=== PATIENT | female | born 1965 | race Caucasian/White ===

== ENCOUNTER 2018-07-05 11:54 | Outpatient (CLI) | payer MEDICAID, SELFPAY ==
[2018-07-05 12:54] LABS: Bilirubin Negative (Negative); Blood Negative (Negative); Clarity Clear; Glucose Negative (Negative); Ketones Negative (Negative); Leukocyte Esterase Negative (Negative); Nitrite Negative (Negative); Specific Gravity 1.025 (1.005-1.025); Urobilinogen 0.2 EU/dL (Up TO 0.2)
[2018-07-05 12:57] LABS: Abs Immature Grans 0.01 k/cumm (0.0-0.09); Absolute Basophil Count 0.04 k/cumm (0.0-0.2); Absolute Eosinophil Count 0.14 k/cumm (0.0-0.7); Absolute Lymphocyte Count 1.87 k/cumm (1.2-3.4); Absolute Monocyte Count 0.42 k/cumm (0.11-0.7); Absolute Neutrophil Count 3.76 k/cumm (1.2-6.7); Basophils % 0.6; Eosinophils % 2.2; HCT 42.5 % (36.0-46.0); HGB 14.2 g/dL (12.0-15.5); Immature Grans % 0.2; Mean Corp. HGB Concentration 33.4 g/dL (32.0-36.0); Mean Corpuscular Hemoglobin 31.9 pg (27.0-33.0); Mean Corpuscular Volume 95.5 fL (80-95); Mean Platelet Volume 12.1 fL (8.0-11.0); Monocytes % 6.7; Neutrophils % 60.3; Platelet Count 160 x1000/uL (130-400); RBC 4.45 m/cumm (4.00-5.20); White Blood Cell Count 6.24 k/cumm (4.4-10.8)
[2018-07-05 14:49] LABS: ALT 23 U/L (12-78); AST 15 U/L (15-37); Albumin 4.3 g/dL (3.4-5.0); Alkaline Phosphatase 68 U/L (46-116); BUN 13 mg/dL (7-18); Bilirubin, Total 0.4 mg/dL (0.2-1.0); CREATININE 0.68 mg/dL (0.55-1.02); Calcium 8.9 mg/dL (8.5-10.1); Chloride 104 mmol/L (98-107); Glucose 81 mg/dL (70-100); Magnesium 1.9 mg/dL (1.8-2.4); Potassium 4.3 mmol/L (3.5-5.1); Sodium 141 mmol/L (136-145); TSH (W/Ref FT4) 0.66 uIU/mL (0.358-3.74); Total Protein 7.2 g/dL (6.4-8.2); Vitamin B12 349 pg/mL (193-986)
[2018-07-07 06:44] LABS: Vitamin D 25 Total 37.1 ng/ml (30-100)
== END 2018-07-05 12:14 ==
PROVIDERS: PCP Family Medicine; Visit Provider Family Medicine
DX: R10.10 Upper abdominal pain, unspecified (principal); R53.83 Other fatigue; E55.9 Vitamin D deficiency, unspecified; E53.8 Deficiency of other specified B group vitamins
CPT/HCPCS: 36415; 80053; 82306; 81003; 82607; 83735; 84443; 85025

== ENCOUNTER 2018-08-02 00:09 | Outpatient (CLI) | payer MEDICAID, SELFPAY ==
--- NOTE | 2018-08-02 09:49 | DI.US_ITS ---
SYMPTOMS/DIAGNOSIS: QUESTIONING GALLSTONES, ABDOMINAL PAIN, R10.9, K8.20 ABDOMINAL ULTRASOUND: Routine examination was performed. Comparison is 10/27/12. The aorta and IVC are unremarkable. There are two small simple cysts seen in the right lobe of the liver, the larger measuring 1.4 cm, the smaller measuring 1.1 cm. No suspicious hepatic masses are seen. The gallbladder is negative sonographically. No stones, sludge, gallbladder wall thickening or pericholecystic fluid is seen. The common duct is within normal limits at 0.3 cm. The pancreas, kidneys and spleen are unremarkable. IMPRESSION: Two small simple hepatic cysts. Otherwise negative examination.
== END 2018-08-02 00:29 ==
PROVIDERS: PCP Family Medicine; Visit Provider Family Medicine
DX: R10.9 Unspecified abdominal pain (principal); K76.89 Other specified diseases of liver; K80.20 Calculus of gallbladder without cholecystitis without obstruction
CPT/HCPCS: 76700

== ENCOUNTER 2018-08-22 11:23 | Outpatient (CLI) | payer MEDICAID, SELFPAY ==
--- NOTE | 2018-08-22 14:34 | DI.RAD_ITS ---
SYMPTOMS/DIAGNOSIS: FATIGUE, SMOKER, R53.83, F17.200 PA AND LATERAL CHEST: The heart is not enlarged. The lungs are grossly clear. Mild scarring noted in the lung bases. No gross interval change in appearance in comparison with examination of 07/28/15. No pleural effusion seen. CONCLUSION: No evidence of acute disease.
== END 2018-08-22 11:43 ==
PROVIDERS: PCP Family Medicine; Visit Provider Family Medicine
DX: R53.83 Other fatigue (principal); F17.200 Nicotine dependence, unspecified, uncomplicated
CPT/HCPCS: 71046

== ENCOUNTER 2018-09-19 19:01 | Outpatient (REF) | payer MEDICAID, SELFPAY | END 2018-09-19 19:21 | LOC: LBN 19:01 | PROVIDERS: PCP Family Medicine; Visit Provider Family Medicine | DX: J02.9 Acute pharyngitis, unspecified (principal) | CPT/HCPCS: 87077; 87070 ==

== ENCOUNTER 2019-03-06 14:07 | Outpatient (CLI) | payer MEDICAID, SELFPAY ==
[2019-03-06 15:03] LABS: Absolute Basophil Count 0.05 k/cumm (0.0-0.2); Absolute Eosinophil Count 0.13 k/cumm (0.0-0.7); Absolute Lymphocyte Count 1.87 k/cumm (1.2-3.4); Absolute Monocyte Count 0.47 k/cumm (0.11-0.7); Absolute Neutrophil Count 3.44 k/cumm (1.2-6.7); Basophils % 0.8; Eosinophils % 2.2; HCT 43.2 % (36.0-46.0); HGB 14.4 g/dL (12.0-15.5); Lymphocytes % 31.4; Mean Corp. HGB Concentration 33.3 g/dL (32.0-36.0); Mean Corpuscular Hemoglobin 31.6 pg (27.0-33.0); Mean Corpuscular Volume 94.7 fL (80-95); Mean Platelet Volume 11.6 fL (8.0-11.0); Monocytes % 7.9; Neutrophils % 57.7; Platelet Count 172 x1000/uL (130-400); RBC 4.56 m/cumm (4.00-5.20); RBC Distribution Width 13.7 % (11.7-14.6); White Blood Cell Count 5.96 k/cumm (4.4-10.8)
[2019-03-06 15:50] LABS: ALT 22 U/L (12-78); AST 15 U/L (15-37); Albumin 4.2 g/dL (3.4-5.0); Alkaline Phosphatase 72 U/L (46-116); Anion Gap 9.5 mmol/L (3-11); BUN 13 mg/dL (7-18); Bilirubin, Total 0.5 mg/dL (0.2-1.0); CO2 27.5 mmol/L (21.0-32.0); CREATININE 0.53 mg/dL (0.55-1.02); Calcium 9.4 mg/dL (8.5-10.1); Chloride 103 mmol/L (98-107); Glucose 90 mg/dL (70-100); Sodium 140 mmol/L (136-145)
== END 2019-03-06 14:27 ==
PROVIDERS: PCP Family Medicine; Visit Provider Family Medicine
DX: R53.83 Other fatigue (principal)
CPT/HCPCS: 36415; 80053; 83735; 85025

== ENCOUNTER 2019-08-25 01:23 | Outpatient (CLI) | payer MEDICAID, SELFPAY ==
--- NOTE | 2019-08-25 13:06 | DI.US_ITS ---
EXAM: US PELVIS AND TRANSVAGINAL CLINICAL HISTORY: PELVIC PAIN/COCCYDYNIA W/O INJURY, R10.2 TECHNIQUE: Ultrasound performed using standard protocol. COMPARISON: US ABDOMEN from 08/02/2018 FINDINGS: The uterus is retroverted. Uterus measures 7.9 centimeters long x 7.1 centimeters AP x 5.8 centimete rs transverse. There are several hypoechoic masses in the uterus. These likely reflect fibroids. T he largest is seen in the fundal region and measures 5.1 x 5.2 x 5.1 centimeters. The endometrial stripe is thickened in this postmenopausal patient. It measures 9 millimeters in thi ckness. There does appear to be a 0.8 x 0.5 x 0.7 centimeter hypoechoic vascular region in the moshe l endometrium. The patient is status post right oophorectomy. The left ovary measures 2.3 x 1.4 x 1.4 centimeters. The left ovary is unremarkable. No free pelvic fluid or hydronephrosis is present. IMPRESSION: 1. Fibroid uterus. 2. Thickened postmenopausal endometrial stripe. Question of a 0.8 centimeter hypoechoic mass in the endometrium. Gynecologic consult is recommended. 3. Right oophorectomy.
--- NOTE | 2019-08-25 14:00 | DI.US_ITS ---
APPROVED REPORT EXAM: Comprehensive 2D, Doppler, and color-flow Echocardiogram Patient Location: Out-Patient Tobacco Sample Puller: Mildred Camp [facility] ([place]) Indications: Tricuspid insufficiency Conclusion Left Ventricle : The left ventricle is normal size. There is normal left ventricular wall thickness. The left ventricular ejection fraction is within the normal range. There is normal LV segmental wa ll motion. Diastolic function is indeterminate. LVEF is 50-55%. Right Ventricle : The right ventricle is normal size. The right ventricular systolic function is norm al. Atria : The left atrium size is mildly enlarged. Right atrium is mildly dilated. Aortic Valve : Aortic valve is trileaflet. No aortic regurgitation is present. There is no aortic nicholas vular stenosis. Mitral Valve : The mitral valve is normal in structure. There is mitral annular calcification. The mi tral valve chordae are thickened and/or calcified. There is systolic anterior motion of the mitral va lve. Mild mitral regurgitation. No evidence of mitral valve stenosis. Tricuspid Valve : The tricuspid valve is normal in structure. Mild tricuspid regurgitation. Great Vessels : The IVC is enlarged but collapses greater than 50%. Estimated RVSP is 24-32 mmHg. The echocardiographic images from 2011 are unavailable for comparison. Wall motion Left Ventricle The left ventricle is normal size. The left ventricular ejection fraction is within the normal range. There is normal left ventricular wall thickness. There is normal LV segmental wall motion. Diastolic function is indeterminate. LVEF is 50-55%. Right Ventricle The right ventricle is normal size. The right ventricular systolic function is normal. Atria The left atrium size is mildly enlarged. Right atrium is mildly dilated. Aortic Valve Aortic valve is trileaflet. There is no aortic valvular stenosis. No aortic regurgitation is present. Mitral Valve The mitral valve is normal in structure. There is mitral annular calcification. The mitral valve chor gianluca are thickened and/or calcified. There is systolic anterior motion of the mitral valve. No evidenc e of mitral valve stenosis. Mild mitral regurgitation. Tricuspid Valve The tricuspid valve is normal in structure. There is no tricuspid valve stenosis. Mild tricuspid regu rgitation. Pulmonic Valve The pulmonary valve is normal in structure. There is no pulmonic valvular stenosis. Great Vessels The aortic root size is normal. Ascending aorta is not well visualized. The IVC is enlarged but colla pses greater than 50%. Estimated RVSP is 24-32 mmHg. Pericardium There is no pericardial effusion. 2D Dimensions IVSd 0.85 cm F: 0.6-1.0 LV EDV A2C 89.44 mL PWd 0.85 cm F: 0.6 - 1.0 LV EDV A4C 98.07 mL LVDd 4.65 cm F: 3.8 - 5.2 LA Volume Index A2C 51.08 mL/m2 LVDs 3.50 cm F: 2.2 - 3.5 LA Volume Index A4C 33.38 mL/m2 Aortic Root 3.15 cm F: 2.7 - 3.3 LA Volume Index Biplane 41.93 mL/m2 Left Atrium 3.29 cm F: 2.7 - 3.8 LA Area A4C 18.17 cm2 RA Area A4C 14.79 cm2 LA Area A2C 22.13 cm2 LVOT 1.85 cm (M/F) 1.5-2.5 LA/Aortic Root Ratio 0.96 LVEF (Teich) 49.87 % EF AP4 53.27 % LVEF (Landry's) 52.92 % F: 54 - 74 EF AP2 56.57 % LV Volume 78.13 mL F: 46 - 106 EF BP 52.92 % LV Volume Index 49.13 mL/m2 F: 29 - 61 FS 25.25 % LV Diastology E Decel Time 191.00 (160-240 msec) E/A Ratio 0.8 MED E' 0.06 (>0.07 m/s) LV E/e MED 8.10 (<14) LAT E' 0.08 (>0.1 m/s) LV E/e LAT 6.65 (<14) Aortic Valve LVOT Area 2.74 cm2 LVOT Peak [place]. 0.90 m/s LVOT Mean [place]. 0.56 m/s LVOT Peak Gr. 3.40 mmHg MISTY Vmax Index 1.17 cm2/m2 LVOT Mean Gr. 1.50 mmHg LVOT VTI 0.20 m MISTY Mean [place]. Index 0.97 cm2/m2 AoV Peak [place]. 1.36 (0.5-1.3 m/s) AoV Mean [place]. 0.99 m/s AO Peak GR. 7.39 mmHg AO Mean GR. 4.22 (<5 mmHg) AO VTI 0.28 (0.18-0.25 m) MISTY (VTI) 2.04 (2.5-4.5 cm2) MISTY (VTI) Index 1.28 cm/m2 Mitral Valve MV E Max [place]. 0.52 (0.4-1.3 m/s) MVA VTI 2.64 (4.0-6.0 cm2) MV A Velocity 0.65 (0.4-1.3 m/s) E/A Ratio 0.79 MV Decel. Time 190.60 (160-240 msec) MV PHT 55.28 msec MVA PHT 3.95 cm2 Pulmonary Valve PV Peak Velocity 0.83 (0.5-1.5 m/s) Tricuspid Valve TR P. Velocity 2.46 m/s TV Regurg Vmax 2.46 m/s RAP Estimate 3.00 mmHg RVSP 27.30 mmHg TR P. Gradient 24.25 mmHg
== END 2019-08-25 01:43 ==
PROVIDERS: PCP Family Medicine; Visit Provider Family Medicine
DX: I07.1 Rheumatic tricuspid insufficiency (principal); I51.7 Cardiomegaly; R10.2 Pelvic and perineal pain; D25.9 Leiomyoma of uterus, unspecified; Z90.721 Acquired absence of ovaries, unilateral; Z78.0 Asymptomatic menopausal state; R93.89 Abnormal findings on diagnostic imaging of other specified body structures
CPT/HCPCS: 76830; 76856; 93306

== ENCOUNTER 2019-09-05 10:28 | Outpatient (CLI) | payer MEDICAID, SELFPAY ==
--- NOTE | 2019-09-05 10:31 | DI.RAD_ITS ---
EXAM: XR SHOULDER RT COMPLETE 2+V INDICATION: shoulder pain. COMPARISON: No exams were available for comparison TECHNIQUE: 2D digital imaging was performed. FINDINGS: Moderate degenerative changes are seen at the acromioclavicular joint. Mild degenerative changes are seen at the glenohumeral joint. The bones are intact. There is a tiny calcification adjacent to th e greater tuberosity most consistent with calcific tendonitis. The soft tissues are otherwise unrema rkable. IMPRESSION: Osteoarthritis of the right shoulder.
== END 2019-09-05 10:48 ==
PROVIDERS: PCP Family Medicine; Visit Provider Physician Assistant
DX: M25.511 Pain in right shoulder (principal); M19.011 Primary osteoarthritis, right shoulder; M75.31 Calcific tendinitis of right shoulder
CPT/HCPCS: 73030

== ENCOUNTER 2019-10-16 09:15 | Outpatient (CLI) | payer MEDICAID, SELFPAY ==
[2019-10-16 12:39] LABS: Absolute Basophil Count 0.06 k/cumm (0.0-0.2); Absolute Eosinophil Count 0.19 k/cumm (0.0-0.7); Absolute Monocyte Count 0.59 k/cumm (0.11-0.7); Absolute Neutrophil Count 4.54 k/cumm (1.2-6.7); Basophils % 0.8; Eosinophils % 2.6; HCT 41.6 % (36.0-46.0); HGB 13.6 g/dL (12.0-15.5); Lymphocytes % 27.1; Mean Corp. HGB Concentration 32.7 g/dL (32.0-36.0); Mean Corpuscular Hemoglobin 30.9 pg (27.0-33.0); Mean Corpuscular Volume 94.5 fL (80-95); Neutrophils % 61.5; Platelet Count 192 x1000/uL (130-400); White Blood Cell Count 7.38 k/cumm (4.4-10.8)
[2019-10-16 12:55] LABS: ALT 22 U/L (14-59); AST 16 U/L (15-37); Albumin 4.4 g/dL (3.4-5.0); Alkaline Phosphatase 72 U/L (46-116); BUN 19 mg/dL (7-18); Bilirubin, Total 0.6 mg/dL (0.2-1.0); CREATININE 0.56 mg/dL (0.55-1.02); Calcium 9.4 mg/dL (8.5-10.1); Chloride 104 mmol/L (98-107); Glucose 91 mg/dL (74-106); Potassium 3.9 mmol/L (3.5-5.1); Sodium 143 mmol/L (136-145); TSH (W/Ref FT4) 0.82 uIU/mL (0.36-3.74); Total Protein 7.3 g/dL (6.4-8.2)
== END 2019-10-16 09:35 ==
PROVIDERS: PCP Family Medicine; Visit Provider Family Medicine
DX: R53.83 Other fatigue (principal)
CPT/HCPCS: 36415; 80053; 84443; 85025

== ENCOUNTER 2019-11-20 08:44 | Outpatient (CLI) | payer MEDICAID, SELFPAY | END 2019-11-20 09:04 | PROVIDERS: PCP Family Medicine; Visit Provider Internal Medicine Cardiovascular Disease | DX: R00.2 Palpitations (principal); I08.1 Rheumatic disorders of both mitral and tricuspid valves | CPT/HCPCS: 93005; 93010 ==

== ENCOUNTER 2020-07-18 01:36 | Outpatient (CLI) | payer MEDICAID, SELFPAY | END 2020-07-18 01:56 | PROVIDERS: PCP Family Medicine; Visit Provider Family Medicine | DX: R69 Illness, unspecified (principal) ==

== ENCOUNTER 2020-07-29 00:41 | Outpatient (CLI) | payer MEDICAID, SELFPAY ==
--- NOTE | 2020-07-29 | DI.US_ITS ---
EXAM: US ABDOMEN INDICATION: RUQ ABD PAIN,R10.11 COMPARISON: US ABDOMEN ULTRASOUND (P) from 10/27/2012 US US ABDOMEN from 08/02/2018 US US ECHOCARDIOGRAM from 08/25/2019 TECHNIQUE: Ultrasound abdomen performed using standard protocol FINDINGS: Abdominal ultrasound was performed according to the usual protocol. The liver is normal in size and shape. No focal hepatic lesion seen. There is no evidence of cholelithiasis or biliary dilatation. No gallbladder wall thickening or peric holecystic fluid collection. Pancreas appears intact as visualized. Spleen is unremarkable in appearance with no focal lesion. The right kidney is unremarkable in appearance with no evidence of hydronephrosis nephrolithiasis or renal mass. Left kidney shows question of masslike findings of the lower pole, this may be associate d with duplication of the collecting system with variant appearance of the cortex but mass is not exc luded. Additional evaluation with renal CT or MRI recommended. Abdominal aorta and IVC are of normal diameter. IMPRESSION: No evidence of cholelithiasis. Question left renal lower pole mass. Additional evaluation with sofia l CT or MRI recommended.
== END 2020-07-29 01:01 ==
PROVIDERS: PCP Family Medicine; Visit Provider Family Medicine
DX: R10.11 Right upper quadrant pain (principal)
CPT/HCPCS: 76700

== ENCOUNTER 2020-08-15 01:01 | Outpatient (CLI) | payer MEDICAID, SELFPAY ==
--- NOTE | 2020-08-15 07:00 | DI.CT_ITS ---
EXAM: CT ABD WO/ABD PEL W CLINICAL HISTORY: question of left lower pole renal mass on U/S,ABD/PELVIC PAIN,N28.89 TECHNIQUE: Imaging Protocol: Axial computed tomography images with coronal and sagittal reformatted images were created and reviewed CONTRAST MATERIAL: Intravenous: Omnipaque 350 Contrast volume:100 mL Oral: No COMPARISON: US US ABDOMEN from 07/29/2020 FINDINGS: ABDOMEN: Lung Bases: There is atelectasis in the lung bases bilaterally. There is a 0.5 cm noncalcified pulmo nary nodule in the left lower lobe. Liver: Normal density. There is a 1.7 cm cyst in the posterior aspect of the right lobe of the liver. No suspicious hepatic masses. Portal, Superior Mesenteric, and Splenic Veins: Unremarkable. Gallbladder and Biliary Tract: No radiodense calculus or dilation. Pancreas: Normal density, no abnormal calcifications or inflammatory process. Spleen: Normal. Adrenals: No masses seen. Kidneys: Normal size, contour and axis. 3 mm nonobstructing stone in the lower pole of the right kidn ey. 2 mm nonobstructing stone in the upper pole of the left kidney. No evidence of a renal mass. T he areas seen in the left kidney represents normal enhancing parenchymal tissue. Abdominal Aorta: Abdominal portion non-dilated. Mild atherosclerosis. Bowel: No obstruction or bowel wall thickening. Appendix is unremarkable. Peritoneal Cavity: No ascites, collection or mesenteric inflammatory response. Lymph Nodes: Within normal limits. Bones: Degenerative changes. Soft Tissues: Unremarkable. PELVIS: Bladder: Symmetric distention, no gross wall thickening. Reproductive Organs: Unremarkable as visualized. Lymph Nodes: Within normal limits. Bones: Degenerative changes. IMPRESSION: 1. No evidence of a left renal mass. The area of concern on the ultrasound corresponds to normally e nhancing renal tissue. 2. Bilateral nephrolithiasis. 3. 0.5 cm left lower lobe pulmonary nodule. In the presence of risk factors (example smoking), a fol low-up CT scan of the chest in 12 months is recommended for re-evaluation. RADIATION DOSE DELIVERED: 1,038.42mGy.cm Total DLP 1,038.42mGy.cm Total DLP DATA REPOSITORY: All CT scans at this facility are submitted to the National Radiology Data Registry (NRDR) Dose Index Registry (DIR) with the [employer] (ACR). RADIATION OPTIMIZATION: All CT scans at this facility use at least one of these dose optimization te chniques: automated exposure control; mA and/or kV adjustment per patient size (includes targeted exa ms where dose is matched to clinical indication); or iterative reconstruction.
[2020-08-15] MEDS: Normal Saline Flush 10 ML SYR IVP (11:03)
[2020-08-15] MEDS: Omnipaque 350 MG/ML 100 ML BTL IJ (11:04)
[2020-08-15] MEDS: Normal Saline - Diluent 50 ML VIAL IV (11:05)
== END 2020-08-15 01:21 ==
PROVIDERS: PCP Family Medicine; Visit Provider Family Medicine
DX: N20.0 Calculus of kidney (principal); R91.1 Solitary pulmonary nodule; R10.2 Pelvic and perineal pain
CPT/HCPCS: 74178; 82565; J3490

== ENCOUNTER 2020-10-24 05:08 | Outpatient (CLI) | payer MEDICAID, SELFPAY ==
--- NOTE | 2020-11-11 08:47 | ZIOP_ITS ---
Date of service: 11/11/20 Time of Service: 08:47 14 Day Wind Plant Manager Referring Provider:: [email or web address] Indications:: palps Note: This is a 14-day monitor ordered for the indication of palpitations. ?The patient was in normal sinus rhythm for the majority of the recording with an average heart rate of 80 bpm. ?There were rare PVCs and rare PACs. ?There was one episode of NSVT which lasted 4 beats. There were 2 episodes of supraventricular tachycardia with the longest lasting 3 beats. ?There were no episodes of atrial fibrillation, no pauses greater than 3 seconds and no evidence of high degree heart block. ?There were 26 patient triggered events which were associated with sinus rhythm and a occasional PVC.
== END 2020-10-24 05:28 ==
PROVIDERS: PCP Family Medicine; Visit Provider Nurse Practitioner Family

== ENCOUNTER 2020-11-08 11:00 | Outpatient (CLI) | payer MEDICAID, SELFPAY ==
[2020-11-08 14:17] LABS: Vitamin D 25 Total 35.5 ng/ml (30-100)
[2020-11-08 14:25] LABS: Calculated LDL 128 mg/dL (<100); Cholesterol 207 mg/dL (<200); HDL Cholesterol 52 mg/dL (40-60); TSH (W/Ref FT4) 0.71 uIU/mL (0.36-3.74); Triglyceride 135 mg/dL (<150); Vitamin B12 346 pg/mL (193-986)
== END 2020-11-08 11:01 | disposition home or self-care (01) ==
LOC: LOS 11:00
PROVIDERS: Nurse Practitioner Family; PCP Family Medicine; Visit Provider Family Medicine
DX: E55.9 Vitamin D deficiency, unspecified (principal); E53.8 Deficiency of other specified B group vitamins; Z13.29 Encounter for screening for other suspected endocrine disorder; Z13.220 Encounter for screening for lipoid disorders
CPT/HCPCS: 36415; 80061; 82306; 82607; 84443

== ENCOUNTER 2020-12-06 13:51 | Outpatient (REF) | payer MEDICAID, SELFPAY | END 2020-12-06 13:52 | disposition home or self-care (01) | LOC: LBN 13:51 | PROVIDERS: PCP Family Medicine; Visit Provider Obstetrics & Gynecology | DX: N89.8 Other specified noninflammatory disorders of vagina (principal) | CPT/HCPCS: 87480; 87510; 87660 ==

== ENCOUNTER 2021-01-21 16:56 | Outpatient (REF) | payer MEDICAID, SELFPAY ==
[2021-01-21 17:09] LABS: Creatinine,Urine 53.38 mg/dL; Sodium, Urine 52 mmol/L
[2021-01-21 17:10] LABS: CLEAVED CELLS 146 mmol/24h (40-220); Creatinine,24hr Ur 1.49 g/24hr (0.60-1.80); Total Volume 2800 ml
[2021-01-22 09:01] LABS: Calcium Urine 9.7 mg/dL (See Note); Calcium Urine 24 hr 272 mg/24hrs (100-300); Timed Urine Volume 2800 mL
[2021-01-22 09:02] LABS: Timed Urine Volume 2800 mL; Uric Acid Urine 28.1 mg/dL (See Note); Uric Acid Urine 24hr 787 mg/24hrs (250-750)
[2021-01-22 09:03] LABS: Magnesium 24hr Urine 89.6 mg/24hrs (12.0-192.0); Magnesium Random Urine 3.2 mg/dL (See Note); Timed Urine Volume 2800 mL
[2021-01-22 19:23] LABS: Citrate Excretion, 24hr, U 512 mg/24 h (392 - 1191); Urine Volume 2800 mL
[2021-01-23 15:37] LABS: Oxalate, U 0.31 mmol/24 h; Oxalate, U 27.3 mg/24 h (9.7 - 40.5); Urine Volume 2800 mL
== END 2021-01-21 16:57 | disposition home or self-care (01) ==
LOC: NCHCN 16:56
PROVIDERS: PCP Family Medicine; Visit Provider Urology
DX: N20.0 Calculus of kidney (principal)
CPT/HCPCS: 82507; 83735; 81050; 82340; 82570; 83945; 84300; 84560

== ENCOUNTER 2021-01-30 02:12 | Outpatient (CLI) | payer MEDICAID, SELFPAY ==
[2021-01-30 17:57] LABS: Uric Acid 3.5 mg/dL (2.6-6.0)
[2021-01-30 18:09] LABS: Albumin 4.6 g/dL (3.4-5.0); CREATININE 0.7 mg/dL (0.55-1.02); Calcium 9.5 mg/dL (8.5-10.1); TSH 0.95 uIU/mL (0.36-3.74)
[2021-01-31 16:36] LABS: Rheumatoid Factor <8.6 IU/mL (<12.0)
[2021-02-02 22:08] LABS: Anaplasma phagocytophilum Negative (Negative); B. miyamotoi PCR Negative (Negative); Babesia divergens/MO-1 Negative (Negative); Babesia duncani Negative (Negative); Babesia microti Negative (Negative); Ehrlichia chaffeensis Negative (Negative); Ehrlichia ewingii/canis Negative (Negative); Ehrlichia muris eauclairensis Negative (Negative)
[2021-02-03 10:53] LABS: Lyme Ab w Rflx to Lyme Confirm Negative (Negative)
== END 2021-01-30 02:13 | disposition home or self-care (01) ==
LOC: LBO 02:12
PROVIDERS: Internal Medicine; PCP Family Medicine; Visit Provider Nurse Practitioner Family
DX: N20.1 Calculus of ureter (principal); R53.83 Other fatigue; M25.59 Pain in other specified joint
CPT/HCPCS: 36415; 87798; 82040; 82310; 82565; 84443; 84550; 86140; 86431; 86618

== ENCOUNTER 2021-03-05 01:35 | Outpatient (CLI) | payer MEDICAID, SELFPAY ==
--- NOTE | 2021-03-05 | DI.CT_ITS ---
Exam(s) CT CHEST WO EXAM: CT CHEST WO CLINICAL HISTORY: COPD, J44.9 TECHNIQUE: Imaging Protocol: Axial computed tomography images with coronal and sagittal reformatted images were created and reviewed CONTRAST MATERIAL: No IV contrast was administered. COMPARISON: CT CT ABD WO/ABD PEL W from 08/15/2020 FINDINGS: Tracheobronchial tree: Patent where visualized. Mediastinum and Vivian: No dominant adenopathy or fluid collection. Pulmonary parenchyma: No consolidation or dominant measurable mass. Mild centrilobular and paraseptal emphysema is noted. There is a 0.4 cm mildly thick-walled cystic lesion in the right middle lobe. There is a stable 4 mm noncalcified pulmonary nodule in the left lower lobe. There is stable scarrin g in the lower lobes bilaterally. Pleura: No effusion or pneumothorax. Heart: The heart is not dilated. No coronary artery calcifications are seen. No pericardial effusion. Aorta: Thoracic aorta non-dilated. Mild atherosclerosis. Upper abdomen: Stable hypodense fluid attenuation lesion in the posterior right lobe of the liver. Nonobstructing 3 mm stone in the superior pole of the left kidney. Lymph nodes: Within normal limits. Bones: Degenerative changes. Soft tissues: Unremarkable. Thyroid gland: Unremarkable. IMPRESSION: 1. Mild centrilobular and paraseptal emphysema. 2. Stable 4 mm left lower lobe pulmonary nodule. 3. 4 mm right middle lobe cyst with a mildly thickened wall. This is nonspecific. Mild infectious o r inflammatory process or pneumatocele should be considered. Neoplasm/metastatic disease cannot be e ntirely excluded but is considered less likely. A follow-up CT scan may be obtained for re-evaluat ion in 3-6 months. RADIATION DOSE DELIVERED: 410.66mGy.cm Total DLP DATA REPOSITORY: All CT scans at this facility are submitted to the National Radiology Data Registry (NRDR) Dose Index Registry (DIR) with the [employer] (ACR). RADIATION OPTIMIZATION: All CT scans at this facility use at least one of these dose optimization te chniques: automated exposure control; mA and/or kV adjustment per patient size (includes targeted exa ms where dose is matched to clinical indication); or iterative reconstruction.
== END 2021-03-05 01:55 ==
PROVIDERS: PCP Nurse Practitioner Family; Visit Provider Internal Medicine
DX: J44.9 Chronic obstructive pulmonary disease, unspecified (principal); J43.2 Centrilobular emphysema; R91.1 Solitary pulmonary nodule; J98.4 Other disorders of lung
CPT/HCPCS: 71250

== ENCOUNTER 2021-04-01 01:23 | Outpatient (CLI) | payer MEDICAID, SELFPAY ==
--- NOTE | 2021-04-01 08:00 | DI.US_ITS ---
Exam(s) US RENAL EXAM: US RENAL CLINICAL HISTORY: monitor known kidney stones, N20.0, star nephrolithiasis TECHNIQUE: Ultrasound performed using standard protocol. COMPARISON: US US ABDOMEN from 07/29/[address] CHEST WO from 03/05/[address] CHEST WO from 03/05/2021 FINDINGS: Renal ultrasound was performed according to the usual protocol. There is no evidence of hydronephros is. There is a probable tiny lower pole right renal calculus. No left renal calculus identified. T here is no evidence a renal mass. Urinary bladder is unremarkable in appearance with pre and postvoid urinary bladder volume measuremen ts 147 cc and 10 cc respectively. IMPRESSION: A possible tiny nonobstructing right renal calculus. No other significant findings. DATA REPOSITORY:
== END 2021-04-01 01:43 ==
PROVIDERS: PCP Nurse Practitioner Family; Visit Provider Urology
DX: N20.0 Calculus of kidney (principal)
CPT/HCPCS: 76770

== ENCOUNTER 2021-06-11 01:40 | Outpatient (CLI) | payer MEDICAID, SELFPAY ==
--- NOTE | 2021-06-11 | DI.DEXA_ITS ---
Exam(s) XR DEXA BONE DENSITY W/WO RADHA EXAM: XR DEXA BONE DENSITY W/WO RADHA CLINICAL HISTORY: JOINT PAIN, M25.50, FAMILY H/O OSTEOPOROSIS,SCREENING FOR OSTEOPOROSIS TECHNIQUE: Routine DEXA evaluation of the lumbar spine, hip, or forearm. COMPARISON: CR LUMBAR SPINE COMPLETE from 01/23/2014 FINDINGS: Performed on a Hologic unit. Lateral image: No compression fracture evident. Lumbar Spine total T-score: -0.9 Hip total T-score:-0.7 Independent reading at the femoral neck yields a T-score of -1.8 Forearm total T-score: -0.6 IMPRESSION: Bone mineral density measures in the osteopenia range. Fracture risk is moderate. Note: Any spine fracture indicates 5x risk for subsequent spine fracture and 2x risk for subsequent h ip fracture. World Health Organization criteria for BMD interpretation classify patients: Normal...... T- Score at or above -1.0 Osteopenic... T- Score between -1.0 and -2.5 Osteoporosis... T-Score at or below -2.5
== END 2021-06-11 02:00 ==
PROVIDERS: PCP Nurse Practitioner Family; Visit Provider Nurse Practitioner Family
DX: M25.59 Pain in other specified joint (principal); M85.89 Other specified disorders of bone density and structure, multiple sites; Z13.820 Encounter for screening for osteoporosis
CPT/HCPCS: 77080

== ENCOUNTER 2021-08-15 00:37 | Outpatient (CLI) | payer MEDICAID, SELFPAY ==
--- NOTE | 2021-08-15 08:53 | DI.CT_ITS ---
Exam(s) CT ABDOMEN PELVIS WO EXAM: CT ABDOMEN PELVIS WO INDICATION: monitor known stones,N20.0. COMPARISON: CT CT ABD WO/ABD PEL W from 08/15/2020 TECHNIQUE: CT examination was performed without contrast administration. FINDINGS: Images obtained through the lung bases are unremarkable. Visualized portions of the liver and splee n appear intact with an incidental presumed small inferior right lobe hepatic cyst.. Visualized portions of the pancreas are unremarkable. Gallbladder and bile ducts are CT normal. Abdominal aorta is of normal diameter. No significant abdominal wall hernia. No significant abdominal or pelvic adenopathy. Adrenals appear normal bilaterally. The kidneys are normal in size and shape. There is no evidence of a renal mass or hydronephrosis. There are tiny solitary bilateral renal calculi which are nonobstructing. No change in appearance co mparison with prior examination of August 15, 2020. No ureteral dilatation or calcification identified. Urinary bladder is unremarkable in appearance. IMPRESSION: Tiny bilateral nonobstructing renal calculi are noted, no change in appearance from examination of 2019. RADIATION DOSE DELIVERED: 815.61mGy.cm DLP 815.61mGy.cm Total DLP CTDIvol RADIATION OPTIMIZATION: All CT scans at this facility use at least one of these dose optimization te chniques: automated exposure control; mA and/or kV adjustment per patient size (includes targeted exa ms where dose is matched to clinical indication); or iterative reconstruction.
== END 2021-08-15 00:57 ==
PROVIDERS: PCP Nurse Practitioner Family; Visit Provider Urology
DX: N20.0 Calculus of kidney (principal)
CPT/HCPCS: 74176

== ENCOUNTER 2021-10-17 04:17 | Outpatient (CLI) | payer MEDICAID, SELFPAY ==
[2021-10-17 13:53] LABS: Abs Immature Grans 0.01 10^3/uL (0.0-0.06); Absolute Basophil Count 0.03 10^3/uL (0.0-0.2); Absolute Eosinophil Count 0.15 10^3/uL (0.0-0.7); Absolute Lymphocyte Count 1.92 10^3/uL (1.2-3.4); Absolute Monocyte Count 0.53 10^3/uL (0.1-0.8); Absolute Neutrophil Count 2.99 10^3/uL (1.2-6.7); Basophils % 0.5; Eosinophils % 2.7; HGB 14.2 g/dL (11.2-15.7); Immature Grans % 0.2; Lymphocytes % 34.1; MCH 31.2 pg (27.0-33.0); MCHC 33.8 % (32.0-36.0); MCV 92.3 fL (80-95); MPV 11.2 fL (8.0-11.0); Monocytes % 9.4; Neutrophils % 53.1; Nucleated RBC 0 %; Platelet Count 170 10^3/uL (130-400); RBC 4.55 10^6/uL (3.93-5.22); RDW-SD 40.8 fL; WBC 5.63 10^3/uL (4.4-10.8)
[2021-10-17 14:00] LABS: ESR 4 mm/hr (0-30)
[2021-10-17 15:37] LABS: ALT 29 U/L (14-59); AST 22 U/L (15-37); Albumin 4.3 g/dL (3.4-5.0); Alkaline Phosphatase 77 U/L (46-116); Anion Gap 10.5 mmol/L (3-11); BUN 15 mg/dL (7-18); Bilirubin, Total 0.5 mg/dL (0.2-1.0); CO2 27.5 mmol/L (21.0-32.0); CREATININE 0.6 mg/dL (0.55-1.02); Calcium 9.4 mg/dL (8.5-10.1); Chloride 102 mmol/L (98-107); Glucose 91 mg/dL (74-106); Potassium 4.2 mmol/L (3.5-5.1); Sodium 140 mmol/L (136-145); TSH (W/Ref FT4) 1.17 uIU/mL (0.36-3.74); Total Protein 7.3 g/dL (6.4-8.2); Vitamin B12 652 pg/mL (193-986)
[2021-10-20 01:17] LABS: Vitamin D 25 Total 54.5 ng/mL (30-100)
== END 2021-10-17 04:18 | disposition home or self-care (01) ==
LOC: LBO 04:17
PROVIDERS: PCP Nurse Practitioner Family; Visit Provider Family Medicine
DX: G47.19 Other hypersomnia (principal); E03.9 Hypothyroidism, unspecified; Z00.00 Encounter for general adult medical examination without abnormal findings
CPT/HCPCS: 36415; 80053; 82306; 85652; 82607; 84443; 85025

== ENCOUNTER 2021-10-31 01:37 | Outpatient (CLI) | payer MEDICAID, SELFPAY ==
--- NOTE | 2021-10-31 07:47 | DI.CT_ITS ---
Exam(s) CT CHEST WO EXAM: CT CHEST WO CLINICAL HISTORY: F/U from last CT for pulmonary nodule, r91.1,? infectious or inflammatory. TECHNIQUE: Imaging protocol: Axial computed tomography images were obtained and coronal and sagittal reformatted images were created and reviewed. COMPARISON: CT CT ABD WO/ABD PEL W from 08/15/[address] CHEST WO from 03/05/[address] ABDOMEN PELVIS WO from 08/15/2021 FINDINGS: Tracheobronchial tree: Patent where visualized. Pulmonary parenchyma: No focal consolidation is present. There is atelectasis in the dependent porti ons of the lungs. There has been no change in the cystic lesion in the right middle lobe. There is unchanged scarring in the lower lobes. There is a stable 4 mm nodule in the left lower lobe. No new pulmonary nodules are present. Emphysematous changes are present in the lungs. Mediastinum and Vivian: No dominant adenopathy or fluid collection. The esophagus is unremarkable. Thyroid gland: Unremarkable. Pleura: No effusion or pneumothorax. Heart: The heart is not dilated. Coronary artery calcification is present. No pericardial effusion. Aorta: Thoracic aorta non-dilated. Atherosclerosis. Upper abdomen: There is a nonobstructing 2 mm stone in the upper pole of the left kidney. There is a gain seen a hepatic cyst in the posterior segment of the right lobe. Lymph nodes: Within normal limits. Soft tissues: Unremarkable. Bones:Within normal limits for the patient's age. IMPRESSION: Stable pulmonary nodules. A follow-up examination in 12 months is recommended for re-evaluation. RADIATION DOSE DELIVERED: 433.99mGy.cm Total DLP 433.99mGy.cm Total DLP DATA REPOSITORY: All CT scans at this facility are submitted to the National Radiology Data Registry (NRDR) Dose Index Registry (DIR) with the [employer] (ACR). RADIATION OPTIMIZATION: All CT scans at this facility use at least one of these dose optimization te chniques: automated exposure control; mA and/or kV adjustment per patient size (includes targeted exa ms where dose is matched to clinical indication); or iterative reconstruction.
== END 2021-10-31 01:57 ==
PROVIDERS: PCP Nurse Practitioner Family; Visit Provider Nurse Practitioner Family
DX: R91.1 Solitary pulmonary nodule (principal); J98.11 Atelectasis; R91.8 Other nonspecific abnormal finding of lung field
CPT/HCPCS: 71250

== ENCOUNTER 2021-12-09 11:26 | Outpatient (CLI) | payer MEDICAID, SELFPAY ==
--- NOTE | 2021-12-09 11:15 | RT.EKG_ITS ---
APPROVED REPORT Exam: Resting ECG Reason for Exam: chest heaviness Patient Location: O HR:70 bpm ECG Measurements Heart Rate 70 AXIS [place] 152 P 65 QRSd 82 QRS 47 QT 418 T 40 QTc 452 Conclusion Sinus rhythm...normal P axis, V-rate 50- 99 Left ventricular hypertrophy...multiple voltage criteria
== END 2021-12-09 11:27 | disposition home or self-care (01) ==
LOC: DI.CARD 11:27
PROVIDERS: PCP Nurse Practitioner Family; Visit Provider Internal Medicine Cardiovascular Disease
DX: R07.89 Other chest pain (principal); R94.31 Abnormal electrocardiogram [ECG] [EKG]
CPT/HCPCS: 93010

== ENCOUNTER 2022-01-06 01:35 | Outpatient (CLI) | payer MEDICAID, SELFPAY ==
--- NOTE | 2022-01-06 08:00 | DI.US_ITS ---
APPROVED REPORT Exam: Exercise Treadmill Patient Location: Out-Patient Room/Bed: Stress Nurse: Jovana Schaefer RN Ordering Provider:VANDANA HERNÁNDEZ, Contact Number: BMI: 24.79 Baseline Rhythm: Sinus Rhythm, PVC's Comment: T wave inversion noted in leads aVL and V2 Indications: CHEST PAIN Medical History Medical History: COPD, Tobacco abuse, SERINA, Abnormal EKG, Anxiety, Depression, GERD, Heart palpitation s, Panic attacks, Pulmonary nodule, Tricuspid insufficiency Cardiac Medications: CoQ10, Magnesium chloride, Atenolol, [place]-3 fish oil Allergies: Sulfa, Adhesive tape, Cephalexin, Doxycycline, Levetiracetam, Metronidazole, Nicotine Conor crilex, Gabapentin, Amitryptylne, Citalopram, Erythromycin, Sertaline Cardiac Risk Factors: FHX of CAD, COPD, Smoking (current) Previous Cardiac Procedures: None Pretest Chest Pain Characteristics: Patient reports variable chest pain w/ dyspnea Exercise History: Physically active Physical Disabilities: None Lung Sounds: Clear to auscultation Heart Sounds: Regular Stress Test Details Test: Exercise stress testing was performed using a Antione protocol. Rest Stress HR Resting HR Supine: 68 bpm Max Heart Rate (APMHR): 165 bpm Resting HR Standin bpm Target HR (85% APMHR): 140 bpm Max HR Achieved: 169 bpm % of APMHR: 102 Recovery HR: 100 bpm HR response to stress: Normal HR response to stress Comment: Atenolol not held for test. BP Resting BP Supine: 138/82 mmHg Resting BP Standin/80 mmHg Max BP: 184/92 mmHg Recovery BP: 120/68 mmHg BP response to stress: Normal blood pressure response to stress. ECG Resting ECG: Sinus Rhythm Ectopy: PVCs Comment: T wave inversion noted in leads aVL and V2 Stress ECG: Sinus Tachycardia ST Change: No significant ST segment changes noted Arrhythmia: PVCs Comment: T wave inversion noted in leads aVL and V2 Recovery ECG: Sinus Rhythm Recovery ST Change: No significant ST segment changes noted Recovery Arrhythmia: PVCs Clinical Reason for Termination: Fatigue Stress Symptoms: Dyspnea, General Fatigue Exercise duration: 12 min00 sec Highest Stage Reached: Stage 4: 4.2 mph at 16% grade. Exercise capacity: 13.48 METs Chavez Treadmill Score: 12 Rate Pressure Product: [id number] Stress ECG Conclusion 1. Resting electrocardiogram showed nondiagnostic anterior T abnormality 2. Patient exercised on the Antione protocol completed a workload of 13.48 METS 3. Normal heart rate and blood pressure response to exercise. The patient achieved greater than 100% of predicted heart rate for age 4. There was no electrocardiographic evidence of myocardial ischemia 5. There were no significant dysrhythmias Chavez Treadmill Score is 12 which is Low risk. Stress Test Summary STAGE Time (mins) Speed (mph) Grade (%) HR BP SYMPTOMS METS Supine 68 138/82 Standing 79 120/80 1 3 1.7 10 118 144/88 4.6 2 6 2.5 12 124 172/88 7 3 9 3.4 14 145 184/92 10.2 4 12 4.2 16 164 12.9 1 min recovery 143 3 min recovery 112 180/84 6 min recovery 103 120/68 9 min recovery 100 MPI Conclusion This was a stress echocardiogram. Resting echo showed normal left ventricular systolic function, EF approximately 60% Post exercise echocardiogram showed improved EF, 65 to 70%, with decreased left ventricular chamber s ize and augmented contractility of all segments This was a negative stress echocardiogram, no evidence of myocardial ischemia or prior infarction
== END 2022-01-06 01:55 ==
PROVIDERS: PCP Nurse Practitioner Family; Visit Provider Internal Medicine Cardiovascular Disease
DX: F17.200 Nicotine dependence, unspecified, uncomplicated (principal); R07.89 Other chest pain; R94.31 Abnormal electrocardiogram [ECG] [EKG]; Z82.49 Family history of ischemic heart disease and other diseases of the circulatory system
CPT/HCPCS: 93350; 93017

== ENCOUNTER 2022-01-12 02:15 | Outpatient (CLI) | payer MEDICAID, SELFPAY | END 2022-01-12 02:16 | disposition home or self-care (01) | LOC: LBO 02:15 | PROVIDERS: PCP Nurse Practitioner Family; Visit Provider Surgery ==

== ENCOUNTER 2022-01-21 17:43 | Outpatient (CLI) | payer MEDICAID, SELFPAY ==
--- NOTE | 2022-01-21 15:09 | DI.RAD_ITS ---
Exam(s) XR FINGER RT LITTLE EXAM: XR FINGER RT LITTLE CLINICAL HISTORY: Trauma to 5th digit on right hand - Injury of finger - S69.90XA TECHNIQUE: COMPARISON: No exams were available for comparison FINDINGS: Three views were obtained. There is no evidence of acute fracture or dislocation. IMPRESSION: RADIATION DOSE DELIVERED: Total DLP
== END 2022-01-21 18:03 ==
PROVIDERS: PCP Nurse Practitioner Family; Visit Provider Nurse Practitioner Family
DX: S69.81XA Other specified injuries of right wrist, hand and finger(s), initial encounter; M79.644 Pain in right finger(s)
CPT/HCPCS: 73140

== ENCOUNTER → 2022-03-10 00:29 | Outpatient (CLI) | payer MEDICAID, SELFPAY | PROVIDERS: PCP Nurse Practitioner Family; Visit Provider Nurse Practitioner Family ==

== ENCOUNTER 2022-03-23 09:12 | Outpatient (CLI) | payer MEDICAID, SELFPAY | END 2022-03-23 09:13 | disposition home or self-care (01) | LOC: LBO 09:13 | PROVIDERS: PCP Nurse Practitioner Family; Visit Provider Surgery ==

== ENCOUNTER → 2022-04-09 01:13 | Outpatient (CLI) | payer MEDICAID, SELFPAY | PROVIDERS: PCP Nurse Practitioner Family; Visit Provider Urology ==

== ENCOUNTER 2022-04-14 10:20 | Outpatient (CLI) | payer MEDICAID, SELFPAY ==
--- NOTE | 2022-04-14 09:00 | DI.RAD_ITS ---
Exam(s) XR SHOULDER RT COMPLETE 2+V EXAM: XR SHOULDER RT COMPLETE 2+V CLINICAL HISTORY: right shoulder pain. TECHNIQUE: 2D digital imaging was performed of the right shoulder. Two images were obtained. AP an d axillary views were obtained. COMPARISON: CR XR SHOULDER RT COMPLETE 2+V from 09/05/2019 FINDINGS: BONES: No acute fracture is present. No bony destructive lesion is seen. JOINTS: No dislocation present. Mild degenerative changes are seen at the acromioclavicular joint. SOFT TISSUE: Normal. IMPRESSION: Mild degenerative changes of the right AC joint. DATA REPOSITORY: RADIATION DOSE DELIVERED:
== END 2022-04-14 10:21 | disposition home or self-care (01) ==
LOC: DIORS 10:21
PROVIDERS: PCP Nurse Practitioner Family; Referring Provider Nurse Practitioner Family; Visit Provider Student in an Organized Health Care Education/Training Program
DX: M25.511 Pain in right shoulder (principal)
CPT/HCPCS: 73030

== ENCOUNTER 2022-04-16 02:24 | Outpatient (CLI) | payer MEDICAID, SELFPAY ==
[2022-04-16 12:33] LABS: Abs Immature Grans 0.02 10^3/uL (0.0-0.06); Absolute Basophil Count 0.06 10^3/uL (0.0-0.2); Absolute Eosinophil Count 0.17 10^3/uL (0.0-0.7); Absolute Lymphocyte Count 1.99 10^3/uL (1.2-3.4); Absolute Monocyte Count 0.54 10^3/uL (0.1-0.8); Absolute Neutrophil Count 3.56 10^3/uL (1.2-6.7); Basophils % 0.9; Eosinophils % 2.7; HCT 42.1 % (36.0-46.0); HGB 14.1 g/dL (11.2-15.7); Immature Grans % 0.3; Lymphocytes % 31.4; MCH 31.6 pg (27.0-33.0); MCHC 33.5 % (32.0-36.0); MCV 94 fL (80-95); MPV 11.2 fL (8.0-11.0); Monocytes % 8.5; Neutrophils % 56.2; Platelet Count 163 10^3/uL (130-400); RBC 4.46 10^6/uL (3.93-5.22); RDW 12.8 % (11.7-14.6); RDW-SD 44.4 fL; WBC 6.34 10^3/uL (4.4-10.8)
[2022-04-16 13:41] LABS: Calculated LDL 116 mg/dL (<100); Cholesterol 189 mg/dL (<200); Ferritin 138 ng/mL (8-252); Folate > 20.0 ng/mL (8.6-20.0); HDL Cholesterol 50 mg/dL (40-60); Triglyceride 115 mg/dL (<150); Vitamin B12 478 pg/mL (193-986)
[2022-04-16 15:01] LABS: ALT 24 U/L (14-59); AST 15 U/L (15-37); Albumin 4.1 g/dL (3.4-5.0); Alkaline Phosphatase 70 U/L (46-116); Anion Gap 9.8 mmol/L (3-11); BUN 18 mg/dL (7-18); Bilirubin, Total 0.5 mg/dL (0.2-1.0); CO2 27.2 mmol/L (21.0-32.0); CREATININE 0.6 mg/dL (0.55-1.02); Calcium 9.1 mg/dL (8.5-10.1); Chloride 105 mmol/L (98-107); Glucose 90 mg/dL (74-106); Sodium 142 mmol/L (136-145); Total Protein 7.2 g/dL (6.4-8.2)
[2022-04-16 16:05] LABS: Hemoglobin A1C 5.2 % (<5.7)
[2022-04-16 16:21] LABS: Vitamin D 25 Total 52.5 ng/mL (30-100)
[2022-04-16 22:20] LABS: Progesterone 0.3 ng/mL (See Table)
[2022-04-17 09:13] LABS: DHEA Sulfate 91 ug/dL (30-182)
[2022-04-20 09:49] LABS: Insulin <3.0 uIU/mL (<29.0)
[2022-04-21 17:25] LABS: Estradiol, Mass Spectrometry <10 pg/mL; Estrone 17 pg/mL
[2022-05-02 15:20] LABS: Testosterone, Free 0.38 ng/dL (<0.13-0.90); Testosterone, Total 15 ng/dL (8-60)
== END 2022-04-16 02:25 | disposition home or self-care (01) ==
LOC: LBO 02:24
PROVIDERS: PCP Nurse Practitioner Family; Visit Provider Naturopath
DX: R63.5 Abnormal weight gain (principal); Z79.890 Hormone replacement therapy; R53.83 Other fatigue
CPT/HCPCS: 36415; 80053; 80061; 82306; 82627; 84402; 84403; 82607; 82626; 82670; 82679; 82728; 82746; 83036; 83525; 84144; 84443; 85025

== ENCOUNTER → 2022-04-28 02:07 | Outpatient (CLI) | payer MEDICAID, SELFPAY ==
--- NOTE | 2022-04-28 | DI.MRI_ITS ---
Exam(s) MR LUMBAR SPINE WO EXAM: MR LUMBAR SPINE WO CLINICAL HISTORY: numbness in left foot/lower leg,back pain, m54.9,r20.0. TECHNIQUE: Multiplanar multisequence MRI of the Lumbar spine was performed. COMPARISON: No exams were available for comparison FINDINGS: Bones: The last intervertebral disc space is designated the L5/S1 level for the numbering purpose of this examination. The vertebral body heights are well maintained. Alignment is satisfactory. Degene rative endplate signal changes are present in the lower thoracic and lumbar spine. Findings are most marked at T11-T12. Cord: The conus tip ends at the T12 level. It is of normal size and signal intensity. T12-L1: No disc herniations or bulges are present. No central spinal canal or neural foraminal stenos is. L1-2: No disc herniations or bulges are present. No central spinal canal or neural foraminal stenosis . L2-3: There is a mild right paracentral/neural foraminal disc herniation. No significant neural fora latanya stenosis is seen. No significant central spinal canal stenosis is present. There does appear to be mild compression of the right L3 nerve root. L3-4: No disc herniations or bulges are present. No central spinal canal or neural foraminal stenosis . L4-5: There is a mild diffuse disc bulge. No focal disc herniation. There is mild narrowing of the central spinal canal.Mild to moderate degenerative changes of the facets are present. L5-S1: No disc herniations or bulges are present. No central spinal canal or neural foraminal stenosi s.Mild degenerative changes of the facet joints are present. Soft tissues: The visualized SI joints and sacrum are well maintained. The paraspinal soft tissues ar e unremarkable. Visualized abdominal organs: Unremarkable. IMPRESSION: 1. Small right paracentral/neural foraminal disc herniation at L2-L3 which appears to compress the ri ght L3 nerve root. 2. Degenerative changes in the lumbar spine. There is mild narrowing of the central spinal canal at L4-L5. 3. Multilevel degenerative changes in the lumbar spine. DATA REPOSITORY:
== END ==
PROVIDERS: PCP Nurse Practitioner Family; Visit Provider Nurse Practitioner Family
DX: R20.0 Anesthesia of skin (principal); M47.816 Spondylosis without myelopathy or radiculopathy, lumbar region; M51.26 Other intervertebral disc displacement, lumbar region; M48.061 Spinal stenosis, lumbar region without neurogenic claudication
CPT/HCPCS: 72148

== ENCOUNTER 2022-06-09 16:41 | Outpatient (REF) | payer MEDICAID, SELFPAY ==
[2022-06-09 22:39] LABS: Creatinine,Urine 56.13 mg/dL; Sodium, Urine 78 mmol/L
[2022-06-09 22:40] LABS: CLEAVED CELLS 195 mmol/24h (40-220); Total Volume 2500 ml
[2022-06-11 09:10] LABS: Calcium Urine 9.8 mg/dL (See Note); Calcium Urine 24 hr 245 mg/24hrs (100-300); Timed Urine Volume 2500 mL
[2022-06-11 09:12] LABS: Timed Urine Volume 2500 mL; Uric Acid Urine 22.9 mg/dL (See Note); Uric Acid Urine 24hr 573 mg/24hrs (250-750)
[2022-06-11 09:13] LABS: Magnesium Random Urine 3.4 mg/dL (See Note); Timed Urine Volume 2500 mL
[2022-06-11 15:43] LABS: Citrate Excretion, 24hr, U 460 mg/24 h (399 - 1191); Urine Volume 2500 mL
[2022-06-11 16:15] LABS: Oxalate, U 26.4 mg/24 h (9.7 - 40.5); Urine Volume 2500 mL
== END 2022-06-09 16:42 | disposition home or self-care (01) ==
LOC: LBN 16:41
PROVIDERS: Urology; PCP Nurse Practitioner Family; Visit Provider Nurse Practitioner Family
DX: N20.0 Calculus of kidney (principal)
CPT/HCPCS: 82507; 83735; 81050; 82340; 82570; 83945; 84300; 84560

== ENCOUNTER 2022-07-21 03:38 | Outpatient (CLI) | payer MEDICAID, SELFPAY ==
[2022-07-21 12:48] LABS: FREE T4 1.01 ng/dL (0.76-1.46)
[2022-07-21 13:26] LABS: Vitamin B12 364 pg/mL (193-986)
[2022-07-21 17:27] LABS: T3,Free 3.9 pg/mL (2.8-5.3)
[2022-07-21 17:40] LABS: T3, Total 130 ng/dL (97-169)
[2022-07-21 18:12] LABS: Estradiol <12 pg/mL (See Note); Progesterone 0.3 ng/mL (See Table)
[2022-07-23 05:11] LABS: Vitamin D 25 Total 49.6 ng/mL (30-100)
[2022-07-24 11:33] LABS: T3 (Triiodothyronine) Reverse 15 ng/dL (10-24)
[2022-08-01 14:19] LABS: Testosterone, Free 0.33 ng/dL (<0.13-0.90); Testosterone, Total 19 ng/dL (8-60)
== END 2022-07-21 03:39 | disposition home or self-care (01) ==
LOC: LBO 03:38
PROVIDERS: PCP Nurse Practitioner Family; Visit Provider Acupuncturist
DX: R53.83 Other fatigue (principal); R20.0 Anesthesia of skin; Z79.890 Hormone replacement therapy; R63.5 Abnormal weight gain
CPT/HCPCS: 36415; 82306; 84402; 84403; 82607; 82670; 84144; 84439; 84443; 84480; 84481; 84482

== ENCOUNTER → 2022-08-07 00:16 | Outpatient (CLI) | payer MEDICAID, SELFPAY ==
--- NOTE | 2022-08-07 12:30 | DI.US_ITS ---
Exam(s) US RENAL EXAM: US RENAL CLINICAL HISTORY: bilat nephrolithiasis, N20.0 TECHNIQUE: Ultrasound of both kidneys performed using standard protocol. COMPARISON: CT CT ABDOMEN PELVIS WO from 08/15/2021 FINDINGS: RIGHT KIDNEY: Measures 11.6 cm in length. No cysts evident. Normal cortical thickness and corticomedullary differen tiation .No solid masses There is slight fullness of the infundibulum I of the right kidney. No perinephric fluid. No obviou s calculi in the right kidney and renal pelvis. LEFT KIDNEY: Measures 11.6 cm in length. No cysts evident. Normal cortical thickness and corticomedullary differe ntiaion. No solids masses. There is a 4 x 3 millimeter are hyperechoic focus in the superior pole re gion which is probably a small nonobstructive calculus. There is no hydronephrosis on the left side. URINARY BLADDER: Prevoid volume is 406 cc Postvoid volume is 93 cc No evidence of bladder mass nor diverticuli. Ureterovesical jets: Both identified and appear symmetrical IMPRESSION: 1. Small 4 millimeter nonobstructive calculus in the left kidney. 2. No calculi in the right kidney but there does appear to be mild fullness of the upper right colle cting system. No significant focal abnormality in the urinary bladder. The postvoid residual volume is 93 cc. DATA REPOSITORY:
== END ==
PROVIDERS: PCP Nurse Practitioner Family; Visit Provider Urology
DX: N20.0 Calculus of kidney (principal)
CPT/HCPCS: 76770

== ENCOUNTER 2022-12-08 03:35 | Outpatient (CLI) | payer MEDICAID, SELFPAY ==
[2022-12-08 12:19] LABS: Absolute Basophil Count 0.05 10^3/uL (0.0-0.2); Absolute Eosinophil Count 0.16 10^3/uL (0.0-0.7); Absolute Lymphocyte Count 1.72 10^3/uL (1.2-3.4); Absolute Monocyte Count 0.46 10^3/uL (0.1-0.8); Absolute Neutrophil Count 2.32 10^3/uL (1.2-6.7); Basophils % 1.1; Eosinophils % 3.4; HCT 39.1 % (36.0-46.0); Lymphocytes % 36.5; MCH 31.3 pg (27.0-33.0); MCHC 33.2 % (32.0-36.0); MCV 94 fL (80-95); MPV 11.6 fL (8.0-11.0); Monocytes % 9.8; Neutrophils % 49.2; Platelet Count 150 10^3/uL (130-400); RBC 4.15 10^6/uL (3.93-5.22); RDW 12.9 % (11.7-14.6); RDW-SD 44.2 fL; WBC 4.71 10^3/uL (4.4-10.8)
[2022-12-08 12:29] LABS: Iron 111 ug/dL (50-170); Total Iron Binding Capacity 256 ug/dL (250-450)
[2022-12-08 12:50] LABS: ALT 28 U/L (14-59); AST 17 U/L (15-37); Albumin 4.1 g/dL (3.4-5.0); Alkaline Phosphatase 79 U/L (46-116); Anion Gap 9.8 mmol/L (3-11); BUN 18 mg/dL (7-18); Bilirubin, Total 0.4 mg/dL (0.2-1.0); CO2 27.2 mmol/L (21.0-32.0); CREATININE 0.6 mg/dL (0.55-1.02); Calcium 9.4 mg/dL (8.5-10.1); Calculated LDL 124 mg/dL (<100); Chloride 108 mmol/L (98-107); Cholesterol 181 mg/dL (<200); Estimated GFR 105.28 (mL/min/1.73m2); Ferritin 165 ng/mL (8-252); Glucose 83 mg/dL (74-106); HDL Cholesterol 38 mg/dL (40-60); Potassium 4.1 mmol/L (3.5-5.1); Sodium 145 mmol/L (136-145); Total Protein 7.3 g/dL (6.4-8.2); Triglyceride 96 mg/dL (<150)
[2022-12-08 12:52] LABS: Vitamin D 25 Total 51.8 ng/mL (30-100)
[2022-12-10 09:24] LABS: Transferrin 225 mg/dL (201-352)
== END 2022-12-08 03:36 | disposition home or self-care (01) ==
PROVIDERS: PCP Nurse Practitioner Family; Visit Provider Nurse Practitioner Family
DX: R53.83 Other fatigue (principal); Z13.220 Encounter for screening for lipoid disorders
CPT/HCPCS: 36415; 80053; 80061; 82306; 82728; 83540; 83550; 84466; 85025

== ENCOUNTER 2022-12-22 03:03 | Outpatient (CLI) | payer MEDICAID, SELFPAY ==
[2022-12-22 14:05] LABS: FREE T4 0.98 ng/dL (0.76-1.46); TSH 0.78 uIU/mL (0.36-3.74)
[2022-12-23 18:13] LABS: T3,Free 3.7 pg/mL (2.8-5.3)
[2022-12-23 18:30] LABS: T3, Total 135 ng/dL (97-169)
[2022-12-25 16:31] LABS: T3 (Triiodothyronine) Reverse 16 ng/dL (10-24)
== END 2022-12-22 03:04 | disposition home or self-care (01) ==
LOC: LBO 03:03
PROVIDERS: PCP Nurse Practitioner Family; Visit Provider Acupuncturist
DX: R53.83 Other fatigue (principal)
CPT/HCPCS: 84439; 84443; 84480; 84481; 84482

== ENCOUNTER 2022-12-22 03:05 | Outpatient (CLI) | payer MEDICAID, SELFPAY ==
[2022-12-22] MEDS: Albuterol HFA 18 GM 200 PUFF INH IH (12:41)
[2022-12-22] MEDS: Inhaler, Assist Device 1 EACH MC (12:42)
--- NOTE | 2022-12-23 07:09 | W.PFT ---
Date of service: 12/22/22 Time of Service: 10:08 Pulmonary Function Test Result Requesting Provider Pérez Leblanc Indications: Chronic Cough Interpretation Spirometry: There is mild airflow limitation. There is no bronchodilator response. Lung Volumes: There is hyperinflation. Diffusion Capacity: Normal diffusion Airway Pressure: Normal airways resistance Impression There is mild airflow obstruction with hyperinflation and a normal diffusion. This is consistent with chronic bronchitis (COPD). Clinical Correlation therefore is recommended.
== END 2022-12-22 03:06 | disposition home or self-care (01) ==
LOC: RT 03:05
PROVIDERS: PCP Nurse Practitioner Family; Visit Provider Naturopath
DX: J44.9 Chronic obstructive pulmonary disease, unspecified (principal)
CPT/HCPCS: 94060; 94726; 94729

== ENCOUNTER 2023-01-07 02:05 | Outpatient (CLI) | payer MEDICAID, SELFPAY ==
--- NOTE | 2023-01-07 07:00 | DI.CT_ITS ---
Exam(s) CT CHEST WO EXAM: CT CHEST WO CLINICAL HISTORY: 12 month f/u,pulmonary nodule, kidney stones,r91.1. TECHNIQUE: Multi planar reconstructions were performed. CONTRAST MATERIAL: None COMPARISON: CT CT ABDOMEN PELVIS WO from 08/15/[address] CHEST WO from 10/31/2021 FINDINGS: CHEST: LUNGS: there is no change in the small centrally hypodense nodule in the right middle lobe. pleural based infiltrate in the posterior basal segment the right lower lobe is also unchanged. No pleural e ffusion. Also unchanged scar-like infiltrate in the posterior basal segment of the left lower lobe. No change also in the previously described small 4 millimeter nodule in the lateral aspect of the le ft lower lobe. There are no new pulmonary nodules nor pleural effusions. No findings in the trachea and mainstem bronchi. MEDIASTINUM: There is no obvious hilar nor mediastinal adenopathy. Visualized thyroid unremarkable.No obvious axillary adenopathy CARDIAC: Heart size is normal. There is no pericardial effusion.Caliber of the thoracic aorta is wit hin normal limits. VISUALIZED UPPER ABDOMEN:No significant adrenal masses. Small nonobstructive calculus in lower pole calyx of the right kidney noted. Unchanged from at least August 2021. OSSEOUS: No significant osseous lesions.. IMPRESSION: 1. Continued stable appearance of the bilateral pulmonary nodules and scar-like infiltrates, without significant change compared to CT scans listed above. 2. Nonobstructive small calculus in the lower pole calyx of the right kidney again noted. No hydrone phrosis. 3. No new findings. RADIATION DOSE DELIVERED: 432.32mGy.cm Total DLP DATA REPOSITORY: All CT scans at this facility are submitted to the National Radiology Data Registry (NRDR) Dose Index Registry (DIR) with the [employer] (ACR). RADIATION OPTIMIZATION: All CT scans at this facility use at least one of these dose optimization te chniques: automated exposure control; mA and/or kV adjustment per patient size (includes targeted exa ms where dose is matched to clinical indication); or iterative reconstruction.
== END 2023-01-07 02:25 ==
LOC: DI 02:05
PROVIDERS: PCP Nurse Practitioner Family; Visit Provider Nurse Practitioner Family
DX: R91.1 Solitary pulmonary nodule (principal); R91.8 Other nonspecific abnormal finding of lung field; N20.0 Calculus of kidney
CPT/HCPCS: 71250

== ENCOUNTER 2023-03-09 14:39 | Outpatient (CLI) | payer MEDICAID, SELFPAY ==
--- NOTE | 2023-03-09 14:15 | DI.RAD_ITS ---
Exam(s) XR KNEE RT 3V AP,LAT,VINCE EXAM: XR KNEE RT 3V AP,LAT,VINCE CLINICAL HISTORY: knee pain. TECHNIQUE: 2D digital imaging was performed of the right knee. Three views obtained. Merchant, AP an d lateral views were obtained. COMPARISON: CR XR CHEST 2V PA LATERAL from 08/22/2018 FINDINGS: BONES: No acute fracture is present. No bony destructive lesion is seen. There is an enthesophyte at the superior patella. JOINTS: The knee is normally aligned. No joint effusion is seen. SOFT TISSUE: Normal. IMPRESSION: Unremarkable radiographs of the right knee. DATA REPOSITORY: RADIATION DOSE DELIVERED:
== END 2023-03-09 14:40 | disposition home or self-care (01) ==
LOC: DIORS 14:39
PROVIDERS: PCP Nurse Practitioner Family; Referring Provider Nurse Practitioner Family; Visit Provider Student in an Organized Health Care Education/Training Program
DX: M25.561 Pain in right knee (principal)
CPT/HCPCS: 73562

== ENCOUNTER 2023-03-16 00:38 | Outpatient (CLI) | payer MEDICAID, SELFPAY ==
--- NOTE | 2023-03-16 08:15 | DI.CT_ITS ---
Exam(s) CT ABDOMEN W EXAM: CT ABDOMEN W CLINICAL HISTORY: liver disease,K76.89 TECHNIQUE: IV contrast administered: 100 cc Oral contrast also administered. COMPARISON: CT CT ABDOMEN PELVIS WO from 08/15/2021 FINDINGS: Lung bases: There is pleural based infiltrate noted in the posterior basal segment of both lower lobe s, unchanged from 1121 and therefore most probably benign. No associated pleural effusions. There is no ascites. LIVER: There are 2 adjacent benign-appearing cysts in the posterior aspect of the right hepatic lobe, exhibiting minimal change from august 2021. larger of the 2 adjacent subcapsular cyst measures 11 by 9 millimeters. combined measurement is 1.7 by 0.9 cm. no other significant focal findings in th e liver. no dilated intrahepatic ducts. Gallbladder/biliary: No obvious gallbladder pathology. CBD not dilated. Pancreas: Unremarkable. No masses nor cysts. No pancreatic duct abnormality. Spleen: Size upper normal. No splenic lesions. Splenic and portal veins are patent. Adrenals: No significant masses. Kidneys: Normal size and position. No cysts nor solid masses. There is a solitary tiny calculus in the lower pole calyx of the right kidney measuring 1 mm. No hydronephrosis. Abdominal aorta: Not enlarged. Lymphadenopathy: No tilmrsiegvtgqnf-kpdy-[id number] adenopathy evident. No mesenteric masses. Anterior abdominal wall/GI: No evidence of significant anterior abdominal wall hernias at and above t he umbilicus. No bowel obstruction. No free air. Osseous: No significant osseous lesions nor fractures in the field of view. IMPRESSION: Compared to prior CT scan of 08/15/2021 there is stable appearance of the previously described 2 ady cent benign-appearing cysts in the right hepatic lobe, with measurements as above. There are no new significant focal findings in the liver and upper abdomen. No ascites evident. Tiny nonobstructive 1 millimeter calculus incidentally noted in the right kidney.
[2023-03-16] MEDS: Barium Sulfate 2% W/V-Creamy Vanilla Smoothie 450 ML BTL PO (09:49)
[2023-03-16 09:57] LABS: CREATININE 0.7 mg/dL (0.55-1.02); Estimated GFR 101.44 (mL/min/1.73m2)
[2023-03-16] MEDS: Normal Saline - Diluent 50 ML VIAL IJ (10:26)
[2023-03-16] MEDS: Omnipaque 350 MG/ML 500 ML BTL-Imaging package IJ (10:27)
== END 2023-03-16 00:58 ==
LOC: DI 00:39
PROVIDERS: PCP Nurse Practitioner Family; Visit Provider Nurse Practitioner Family
DX: K76.89 Other specified diseases of liver (principal); I10 Essential (primary) hypertension; N20.0 Calculus of kidney
CPT/HCPCS: 74160; 82565

== ENCOUNTER 2023-03-17 00:46 | Outpatient (CLI) | payer MEDICAID, SELFPAY ==
--- NOTE | 2023-03-17 | DI.MRI_ITS ---
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 Both noninfused and contrast i nfused sequences were performed. IV Contrast injected was cc Dotarem. COMPARISON: MR HEAD ADULT from 12/16/2021 FINDINGS: CEREBRAL PARENCHYMA: There is continued stable appearance of the left parietal craniectomy/mesh crani oplasty surgical site, with unchanged FLAIR bright gliosis signal in the adjacent white matter. Ther e is no evidence of recurrent enhancing extra-axial neoplasm at this level nor new enhancing lesions elsewhere in the brain. There is no significant focal signal abnormality in the cerebellar hemispheres nor within the mike, m idbrain, and thalami. There is no new abnormal signal abnormality in the periventricular white matter. DWI: No areas of restricted diffusion to suggest acute ischemic event. SWI: No microhemorrhages evident. PITUITARY GLAND: No mass nor parasellar abnormality. No obvious abnormality in the cavernous sinuses. FLOW VOIDS: The expected flow void are noted. No evidence of obvious aneurysm nor obvious vascular ma lformation. PARANASAL SINUSES: Complete opacification of the right maxillary sinus is again noted. Mild left max illary sinus circumferential mucosal thickening again noted. Sphenoid sinuses are clear as are the f rontal sinuses and mastoid air cells. ORBITS: No obvious new abnormal findings. IMPRESSION: 1. Continued stable appearance of the left parietal surgical site with no evidence of recurrent menin gioma at this level nor significant new findings elsewhere in the brain. DATA REPOSITORY:
[2023-03-17] MEDS: Normal Saline Flush 10 ML SYR IVP (10:18)
[2023-03-17] MEDS: Gadoterate meglumine 20 ML SYRINGE 12 ML IVP (10:19)
== END 2023-03-17 01:06 ==
LOC: DI 00:46
PROVIDERS: PCP Nurse Practitioner Family; Visit Provider Physician Assistant Surgical
DX: Z86.018 Personal history of other benign neoplasm (principal)
CPT/HCPCS: 70553

== ENCOUNTER → 2023-06-15 00:31 | Outpatient (CLI) | payer MEDICAID, SELFPAY ==
--- NOTE | 2023-06-15 07:30 | DI.MRI_ITS ---
Exam(s) MR LOWER JOINT RT WO EXAM: MR LOWER JOINT RT WO CLINICAL HISTORY: PAIN, INJURY,contusion rt knee, s80.01xa. TECHNIQUE: Multiplanar multisequence MRI was performed. COMPARISON: CR XR KNEE RT 3V AP,LAT,VINCE from 03/09/2023 FINDINGS: BONES: There is no fracture or contusion pattern. JOINTS: A small joint effusion is present. Articular cartilage: Patellofemoral joint: Articular cartilage is unremarkable. Medial femoral tibial joint: Small focal cartilage defect of the medial femoral condyle not extendin g down to bone. Lateral femoral tibial joint: Articular cartilage is unremarkable. TENDONS: Extensor mechanism: Small enthesophyte at quadriceps insertion. Medial retinaculum: Unremarkable. Lateral retinaculum: Unremarkable. Popliteus: Unremarkable. MUSCLES: Unremarkable. MENISCI: The medial meniscus is unremarkable. The lateral meniscus is unremarkable. SOFT TISSUES: Small Bañuelos's cyst. LIGAMENTS: Anterior Cruciate: Unremarkable. Posterior Cruciate: Unremarkable. Medial Collateral:Unremarkable. Lateral Collateral: Unremarkable. IMPRESSION: Small focal cartilage defect in the medial femoral condyle. Small joint effusion and Bañuelos's cyst. No evidence of meniscal or ligament tear. DATA REPOSITORY:
== END ==
PROVIDERS: PCP Nurse Practitioner Family; Visit Provider Student in an Organized Health Care Education/Training Program
DX: S80.01XA Contusion of right knee, initial encounter (principal)
CPT/HCPCS: 73721

== ENCOUNTER 2023-08-23 10:24 | Outpatient (CLI) | payer MEDICAID, SELFPAY ==
[2023-08-23 12:58] LABS: Hemoglobin A1C 5.3 % (<5.7)
[2023-08-23 13:18] LABS: Vitamin D 25 Total 47.1 ng/mL (30-100)
[2023-08-23 13:25] LABS: Calculated LDL 149 mg/dL (<100); Cholesterol 226 mg/dL (<200); HDL Cholesterol 55 mg/dL (40-60); TSH (W/Ref FT4) 0.96 uIU/mL (0.36-3.74); Triglyceride 113 mg/dL (<150); Vitamin B12 408 pg/mL (193-986)
[2023-08-23 15:09] LABS: ALT 23 U/L (14-59); AST 18 U/L (15-37); Albumin 4.1 g/dL (3.4-5.0); Alkaline Phosphatase 73 U/L (46-116); Anion Gap 8.1 mmol/L (3-11); BUN 17 mg/dL (7-18); Bilirubin, Total 0.5 mg/dL (0.2-1.0); CO2 25.9 mmol/L (21.0-32.0); CREATININE 0.6 mg/dL (0.55-1.02); Calcium 9.5 mg/dL (8.5-10.1); Chloride 104 mmol/L (98-107); Estimated GFR 104.63 (mL/min/1.73m2); Glucose 93 mg/dL (74-106); Potassium 4.6 mmol/L (3.5-5.1); Sodium 138 mmol/L (136-145); Total Protein 7.5 g/dL (6.4-8.2)
== END 2023-08-23 10:25 | disposition home or self-care (01) ==
LOC: LOS 10:24
PROVIDERS: Urology; PCP Nurse Practitioner Family; Referring Provider Nurse Practitioner Family; Visit Provider Nurse Practitioner Family
DX: Z13.220 Encounter for screening for lipoid disorders (principal); Z13.1 Encounter for screening for diabetes mellitus; E53.8 Deficiency of other specified B group vitamins; Z13.29 Encounter for screening for other suspected endocrine disorder; E55.9 Vitamin D deficiency, unspecified; N20.0 Calculus of kidney
CPT/HCPCS: 36415; 80053; 80061; 82306; 82607; 83036; 84443

== ENCOUNTER → 2023-09-10 00:22 | Outpatient (CLI) | payer MEDICAID, SELFPAY ==
--- NOTE | 2023-09-10 11:35 | DI.CT_ITS ---
Exam(s) CT CHEST WO EXAM: CT CHEST WO CLINICAL HISTORY: f/u pulmonary nodule,r91.1. TECHNIQUE: Multi planar reconstructions were performed. CONTRAST MATERIAL: None COMPARISON: CT CT CHEST WO from 01/07/[address] ABDOMEN W from 03/16/2023 FINDINGS: CHEST: LUNGS: The pleural based infiltrates in the posterior basal segments of both lower lobes are unchange d from 01/07/2023 and 03/16/2023. No improvement. No increase in size and no associated pleural eff usions. The previously described 4 millimeter nodule in the lateral basal segment of the left lower lobe is unchanged.. The previously described centrally hypointense nodule in the right middle lobe i s also unchanged. There are no new nodules nor pleural effusions MEDIASTINUM: There is no obvious hilar nor mediastinal adenopathy. Visualized thyroid unremarkable.No obvious axillary adenopathy CARDIAC: Heart size is normal. There is no pericardial effusion.Caliber of the thoracic aorta is wit hin normal limits. VISUALIZED UPPER ABDOMEN:No significant findings OSSEOUS: No significant osseous lesions.. IMPRESSION: 1. Continued stable appearance of the previously described small nodules in the left lower lobe and r ight middle lobe. Also continued stable appearance of the pleural based infiltrates or scarring in t he posterior basal segments of both lower lobes. Again not associated with pleural effusions. 2. No intrathoracic adenopathy. RADIATION DOSE DELIVERED: Total DLP DATA REPOSITORY: All CT scans at this facility are submitted to the National Radiology Data Registry (NRDR) Dose Index Registry (DIR) with the [employer] (ACR). RADIATION OPTIMIZATION: All CT scans at this facility use at least one of these dose optimization te chniques: automated exposure control; mA and/or kV adjustment per patient size (includes targeted exa ms where dose is matched to clinical indication); or iterative reconstruction.
--- NOTE | 2023-09-10 11:55 | DI.CT_ITS ---
Exam(s) CT ABDOMEN PELVIS WO/W EXAM: CT ABDOMEN PELVIS WO/W CLINICAL HISTORY: hematuria,r31.9. TECHNIQUE: Imaging Protocol: Axial computed tomography images with coronal and sagittal reformatted images were created and reviewed CONTRAST MATERIAL: Intravenous: Omnipaque-350 100cc Oral: None COMPARISON: CT CT ABDOMEN W from 03/16/2023 FINDINGS: VISUALIZED LUNG BASES: Continued stable appearance of the lung base findings-see separate chest CT sc an dictation today.. ABDOMEN: There is no ascites. LIVER: Previously described 2 adjacent cysts in the posterior aspect of the right hepatic lobe are un changed. There are no new focal hepatic lesions. No dilated intrahepatic ducts. GALLBLADDER/BILIARY: No obvious gallbladder pathology. CBD is not dilated. PANCREAS: No evidence of pancreatic mass nor dilatation of the pancreatic duct. SPLEEN: Spleen is not enlarged. No obvious intrasplenic lesions. Splenic and portal veins are paten t. ADRENALS: There are no significant adrenal masses. KIDNEYS:No significant cyst and no solid lesions. There there is a tiny nonobstructive calculus in t he lower pole calyx of the right kidney, unchanged in size and position.. There are no consistent fi lling defects in the renal pelves. There is a single nondilated ureter on each side. Urinary bladder: Thickened and mildly trabeculated bladder wall.. No diverticuli. No distinct mass. No radiopaque calculi in the bladder lumen. ABDOMINAL AORTA: Abdominal aorta is not enlarged. LYMPH NODES:There is no retroperitoneal nor paraaortic adenopathy. ABDOMINAL WALL: No evidence of significant anterior abdominal wall nor inguinal hernia. GI: There is no evidence of bowel obstruction, free air, nor abscess. PELVIS: GI: No evidence of appendicitis.No evidence of sigmoid diverticulitis. LYMPH NODES: There is no intrapelvic nor inguinal adenopathy. REPRODUCTIVE: Uterus surgically absent. No abnormal adnexal findings. URINARY BLADDER: No calculi nor obvious masses evident OSSEOUS: No fractures and no significant osseous lesions. IMPRESSION: 1. There is a solitary 2 millimeter nonobstructive calculus in lower pole calyx of the right kidney a gain noted, unchanged in size and position. There are no new additional intrarenal calculi. No hydr onephrosis nor hydroureter. No calculi seen in the urinary bladder. 2. Somewhat thickened and trabeculated urinary bladder wall. No distinct mass. No diverticuli. 3. Uterus is surgically absent. No significant adnexal findings. No free fluid. 4. Stable benign cysts in the right hepatic lobe. RADIATION DOSE DELIVERED: Total DLP DATA REPOSITORY: All CT scans at this facility are submitted to the National Radiology Data Registry (NRDR) Dose Index Registry (DIR) with the [employer] (ACR). RADIATION OPTIMIZATION: All CT scans at this facility use at least one of these dose optimization te chniques: automated exposure control; mA and/or kV adjustment per patient size (includes targeted exa ms where dose is matched to clinical indication); or iterative reconstruction.
[2023-09-10] MEDS: Normal Saline - Diluent 50 ML VIAL IJ (12:04)
[2023-09-10] MEDS: Omnipaque 350 MG/ML 500 ML BTL-Imaging package 100 ML IJ (12:05)
== END ==
PROVIDERS: PCP Nurse Practitioner Family; Visit Provider Urology
DX: R91.1 Solitary pulmonary nodule (principal); N20.0 Calculus of kidney; K76.89 Other specified diseases of liver; Z90.710 Acquired absence of both cervix and uterus
CPT/HCPCS: 71250; 74178

== ENCOUNTER 2024-03-31 08:00 | Outpatient (CLI) | payer MEDICAID, SELFPAY ==
--- NOTE | 2024-03-31 08:00 | RT.EKG_ITS ---
APPROVED REPORT Exam: Resting ECG Reason for Exam: cardiac evaluation Patient Location: O HR:77 bpm ECG Measurements Heart Rate 77 AXIS LA 162 P 71 QRSd 82 QRS 43 QT 408 T 51 QTc 462 Conclusion Sinus rhythm...normal P axis, V-rate 50- 99 Probable left atrial enlargement...P >50mS, <-0.10mV V1 Left ventricular hypertrophy...multiple voltage criteria
== END 2024-03-31 08:01 | disposition home or self-care (01) ==
LOC: DI.CARD 08:01
PROVIDERS: PCP Nurse Practitioner Family; Visit Provider Internal Medicine Cardiovascular Disease
DX: R00.2 Palpitations (principal)
CPT/HCPCS: 93010

== ENCOUNTER → 2024-04-18 00:51 | Outpatient (CLI) | payer MEDICAID, SELFPAY ==
--- NOTE | 2024-04-18 12:15 | DI.US_ITS ---
Exam(s) US RENAL EXAM: US RENAL CLINICAL HISTORY: monitor known stone disease,KIDNEY STONES,N20.0 TECHNIQUE: Ultrasound of both kidneys performed using standard protocol. COMPARISON: US US RENAL from 08/07/[address] ABDOMEN PELVIS WO/W from 09/10/2023 FINDINGS: RIGHT KIDNEY: Measures 11.4 cm in length. No cysts evident. Normal cortical thickness and corticomedullary differen tiation .No solid masses No intrarenal calculi nor hydronephrosis. LEFT KIDNEY: Measures 12.3 cm in length. No cysts evident. Normal cortical thickness and corticomedullary differe ntiaion. No solids masses. No intrarenal calculi nor hydonephrosis. URINARY BLADDER: Prevoid volume is 480 cc Postvoid volume is 53 cc Bladder wall appears somewhat thickened and trabeculated. No diverticuli seen. No intravesicular ca lculi evident Ureterovesical jets: Both not visualized IMPRESSION: 1. No significant ultrasound findings in the kidneys. 2. Diffusely thickened urinary bladder wall DATA REPOSITORY:
== END ==
PROVIDERS: PCP Nurse Practitioner Family; Visit Provider Urology
DX: N20.0 Calculus of kidney (principal)
CPT/HCPCS: 76770

== ENCOUNTER 2024-06-29 09:15 | Outpatient (CLI) | payer MEDICAID, SELFPAY ==
--- NOTE | 2024-06-29 10:03 | W.CARDEVENT ---
Date of service: 06/29/24 Time of Service: 10:03 Cardiac Event Recorder Referring Provider:: GADIEL Linares Indications:: Palpitations Cardiac Event Note: This is a cardiac event monitor. Patient was monitored for 12 days and 14 hours rhythm throughout was sinus. Average heart rate was 84. Minimum was 51, maximum 144 There were rare isolated atrial and ventricular ectopic beats There was no atrial fibrillation, no high-grade AV block, no pauses greater than 3 seconds Symptoms were reported. The majority correlated to sinus rhythm, rarely to ventricular ectopic beat
== END 2024-06-29 09:16 | disposition home or self-care (01) ==
LOC: CARDOPNVT 09:15
PROVIDERS: PCP Nurse Practitioner Family; Visit Provider Internal Medicine Cardiovascular Disease
DX: R00.2 Palpitations (principal)
CPT/HCPCS: 93246

== ENCOUNTER 2024-07-04 03:52 | Outpatient (CLI) | payer MEDICAID, SELFPAY ==
[2024-07-04 12:41] LABS: Hemoglobin A1C 5.5 % (<5.7)
[2024-07-04 12:58] LABS: ALT 22 U/L (14-59); AST 17 U/L (15-37); Albumin 4.1 g/dL (3.4-5.0); Alkaline Phosphatase 77 U/L (46-116); BUN 21 mg/dL (7-18); Bilirubin, Total 0.43 mg/dL (0.2-1.0); CREATININE 0.9 mg/dL (0.55-1.02); Calcium 9.4 mg/dL (8.5-10.1); Chloride 104 mmol/L (98-107); Glucose 88 mg/dL (74-106); Potassium 4.7 mmol/L (3.5-5.1); Sodium 142 mmol/L (136-145); TSH (W/Ref FT4) 0.78 uIU/mL (0.36-3.74); Total Protein 7.3 g/dL (6.4-8.2); Vitamin D 25 Total 43.1 ng/mL (30-100)
[2024-07-05 11:36] LABS: Lyme Ab w Rflx to Lyme Confirm Negative (Negative)
[2024-07-06 22:06] LABS: Anaplasma phagocytophilum Negative (Negative); B. miyamotoi PCR Negative (Negative); Babesia divergens/MO-1 Negative (Negative); Babesia duncani Negative (Negative); Babesia microti Negative (Negative); Ehrlichia chaffeensis Negative (Negative); Ehrlichia ewingii/canis Negative (Negative); Ehrlichia muris eauclairensis Negative (Negative)
== END 2024-07-04 03:53 | disposition home or self-care (01) ==
LOC: LOS 03:52
PROVIDERS: PCP Nurse Practitioner Family; Visit Provider Nurse Practitioner Family
DX: R53.82 Chronic fatigue, unspecified (principal); E55.9 Vitamin D deficiency, unspecified; Z13.1 Encounter for screening for diabetes mellitus; R42 Dizziness and giddiness
CPT/HCPCS: 36415; 80053; 82306; 87798; 83036; 84443; 86618

== ENCOUNTER 2024-08-30 15:15 | Outpatient (CLI) | payer MEDICAID, SELFPAY ==
--- NOTE | 2024-08-30 11:00 | DI.RAD_ITS ---
Exam(s) XR SHOULDER LT COMPLETE 2+V EXAM: XR SHOULDER LT COMPLETE 2+V CLINICAL HISTORY: LEFT SHOULDER PAIN. TECHNIQUE: 2D digital imaging was performed of the left shoulder. Three images were obtained. Axil maged and Grashey views were obtained. COMPARISON: No exams were available for comparison FINDINGS: BONES: No acute fracture is present. No bony destructive lesion is seen. JOINTS: No dislocation present. The joint spaces are well maintained. SOFT TISSUE: Normal. IMPRESSION: No acute abnormality. DATA REPOSITORY: RADIATION DOSE DELIVERED:
--- NOTE | 2024-08-30 11:00 | DI.RAD_ITS ---
Exam(s) XR SHOULDER RT COMPLETE 2+V EXAM: XR SHOULDER RT COMPLETE 2+V CLINICAL HISTORY: RIGHT SHOULDER PAIN. TECHNIQUE: 2D digital imaging was performed of the right shoulder. Two images were obtained. Grash ey and axillary views were obtained. COMPARISON: CR XR SHOULDER RT COMPLETE 2+V from 04/14/2022 FINDINGS: BONES: No acute fracture is present. No bony destructive lesion is seen. Subchondral cysts are seen i n the greater tuberosity. JOINTS: No dislocation present. [id number] degenerative changes are seen at both the acromiocla vicular and glenohumeral joints. SOFT TISSUE: Normal. IMPRESSION: Osteoarthritis of the right shoulder. DATA REPOSITORY: RADIATION DOSE DELIVERED:
== END 2024-08-30 15:16 | disposition home or self-care (01) ==
LOC: DIORS 15:15
PROVIDERS: PCP Nurse Practitioner Family; Visit Provider Student in an Organized Health Care Education/Training Program
DX: M25.511 Pain in right shoulder (principal); M25.512 Pain in left shoulder
CPT/HCPCS: 73030

== ENCOUNTER 2024-10-18 02:05 | Outpatient (CLI) | payer MEDICAID, SELFPAY ==
--- NOTE | 2024-10-18 08:34 | DI.CT_ITS ---
Exam(s) CT CHEST WO EXAM: CT CHEST WO CLINICAL HISTORY: Monitoring PULMONARY NODULE,R91.1. TECHNIQUE: Imaging protocol: Axial computed tomography images were obtained and coronal and sagittal reformatted images were created and reviewed. Lung Computer Aided Detection (CAD) was utilized. COMPARISON: CT CT CHEST WO from 09/10/2023 FINDINGS: Tracheobronchial tree: Patent where visualized. No bronchiectasis is present. Pulmonary parenchyma: There is stable scarring in the lower lobes. No focal consolidating infiltrate s are seen. Centrilobular and paraseptal emphysematous changes are present. There is a stable 4 mm nodule in the lateral aspect of the left lower lobe (series 2, image 117). The nodule in the right m iddle lobe is unchanged. There are no new pulmonary nodules. Mediastinum and Vivian: No dominant adenopathy or fluid collection. The esophagus is unremarkable. Thyroid gland: Unremarkable. Pleura: No effusion or pneumothorax. Heart: The heart is not dilated. Single-vessel coronary artery calcification is present. No pericard ial effusion. Aorta: Thoracic aorta non-dilated. Atherosclerotic calcification is present. Upper abdomen: Unremarkable. Lymph nodes: Within normal limits. Soft tissues: Unremarkable. Bones:Within normal limits for the patient's age. IMPRESSION: 1. Stable pulmonary nodules. No new pulmonary nodules. 2. No acute pulmonary process. RADIATION DOSE DELIVERED: 166.18mGy.cm Total DLP 166.18mGy.cm Total DLP DATA REPOSITORY: All CT scans at this facility are submitted to the National Radiology Data Registry (NRDR) Dose Index Registry (DIR) with the [employer] (ACR). RADIATION OPTIMIZATION: All CT scans at this facility use at least one of these dose optimization te chniques: automated exposure control; mA and/or kV adjustment per patient size (includes targeted exa ms where dose is matched to clinical indication); or iterative reconstruction.
== END 2024-10-18 02:25 ==
LOC: DI 02:05
PROVIDERS: PCP Nurse Practitioner Family; Visit Provider Nurse Practitioner Family
DX: N20.0 Calculus of kidney (principal)
CPT/HCPCS: 71250

== ENCOUNTER 2024-10-18 13:59 | Outpatient (CLI) | payer MEDICAID, SELFPAY ==
--- NOTE | 2024-10-18 13:45 | DI.CT_ITS ---
Exam(s) CT RENAL COLIC WO EXAM: CT RENAL COLIC WO CLINICAL HISTORY: Kidney stones? R39.9 N20.0 CALCULUS OF KIDNEY. TECHNIQUE: Imaging Protocol: Axial computed tomography images with coronal and sagittal reformatted images were created and reviewed. COMPARISON: CT CT ABD WO/ABD PEL W from 08/15/[address] ABDOMEN PELVIS WO from 08/15/[address] ABDOMEN W from 03/16/[address] ABDOMEN PELVIS WO/W from 09/10/2023 FINDINGS: ABDOMEN: Lung Bases: There is persistent scarring in the lung bases bilaterally. Liver: Normal density. There is a stable cyst seen in the posterior aspect of the right lobe of the l iver. No follow-up is recommended. Hepatomegaly. Gallbladder and biliary tract: No radiodense calculus or biliary ductal dilation. Pancreas: Normal density, no abnormal calcifications or inflammatory process. Spleen: Normal. Kidneys: Normal size, contour and axis.There is a 2 mm stone in the midpole of the right kidney. The re is a 2 mm stone in the lower pole of the right kidney. No left nephrolithiasis is present. No ma sses seen. Adrenal glands: No mass is seen. Lymph nodes: Within normal limits. Abdominal Aorta: Abdominal portion non-dilated. The sclerotic calcification is present. PELVIS: Bladder:The urinary bladder is incompletely distended. There is diffuse thickening of the wall of th e bladder which may be due to underdistention. Please correlate for any concern for cystitis. Bowel: No obstruction or bowel wall thickening. Appendix is unremarkable. Peritoneal cavity: No ascites, collection or mesenteric inflammatory response. No free air. Reproductive organs: The uterus is absent. Bones: Within normal limits. Soft Tissues: Within normal limits. IMPRESSION: Right nephrolithiasis. No obstructive uropathy. RADIATION DOSE DELIVERED: 380.02mGy.cm Total DLP DATA REPOSITORY: All CT scans at this facility are submitted to the National Radiology Data Registry (NRDR) Dose Index Registry (DIR) with the [employer] ([employer]). RADIATION OPTIMIZATION: All CT scans at this facility use at least one of these dose optimization te chniques: automated exposure control; mA and/or kV adjustment per patient size (includes targeted exa ms where dose is matched to clinical indication); or iterative reconstruction.
== END 2024-10-18 14:19 ==
LOC: DI 14:01
PROVIDERS: PCP Nurse Practitioner Family; Visit Provider Nurse Practitioner Gerontology
DX: N20.0 Calculus of kidney
CPT/HCPCS: 74176

== ENCOUNTER 2025-01-01 00:22 | Outpatient (CLI) | payer MEDICAID, SELFPAY ==
--- NOTE | 2025-01-01 09:40 | DI.MRI_ITS ---
Exam(s) MR UPPER JOINT LT WO EXAM: MR UPPER JOINT LT WO CLINICAL HISTORY: PAIN,LT ROTATOR CUFF TEAR,M75.102. TECHNIQUE: Multiplanar multisequence MRI was performed. COMPARISON: CR XR SHOULDER LT COMPLETE 2+V from 08/30/2024 FINDINGS: BONES: There is no fracture or contusion pattern. JOINTS: Mild degenerative changes are seen at the acromioclavicular joint. There are degenerative ch anges seen at the glenohumeral joint. TENDONS: Supraspinatus: There is a full-thickness tear of the supraspinatus tendon throughout its entire lengt h. It occurs at the insertion site. There is 8 mm retraction. There is underlying tendinosis. Infraspinatus: Unremarkable. Subscapularis: There is tendinosis of the subscapularis. Teres Minor: Unremarkable. Biceps and [place]: Unremarkable. MUSCLES: Unremarkable. GLENOID LABRUM: There is mild degeneration seen in the posterior labrum. SOFT TISSUES: Unremarkable. LIGAMENTS: Unremarkable. OTHER: There is fluid seen in the subacromial subdeltoid bursa. IMPRESSION: 1. Full-thickness tear through the supraspinatus tendon at its insertion site with 8 mm retraction. 2. Tendinosis is seen of the supraspinatus and subscapularis tendons. 3. Degeneration is seen in the posterior labrum. 4. Degenerative changes are seen at the acromioclavicular and glenohumeral joints. DATA REPOSITORY:
--- NOTE | 2025-01-01 10:20 | DI.MRI_ITS ---
Exam(s) MR UPPER JOINT RT WO EXAM: MR UPPER JOINT RT WO CLINICAL HISTORY: PAIN,TENDINOPATHY RT BICEPS TENDON,M67.921. TECHNIQUE: Multiplanar multisequence MRI was performed. COMPARISON: CR XR SHOULDER RT COMPLETE 2+V from 08/30/2024 FINDINGS: BONES: There is no fracture or contusion pattern. Cystic changes are seen in the greater tuberosity. JOINTS: There are degenerative changes seen at the acromioclavicular joint. There also degenerative changes seen at the glenohumeral joint. There is superior subluxation of the humeral head relative t o the glenoid. TENDONS: Supraspinatus: There is a full-thickness tear of the supraspinatus tendon from the insertion site wit h a 8 mm gap. There is underlying tendinosis. Infraspinatus: There is a full-thickness tear of the infraspinatus tendon anteriorly. This occurs ne ar the musculotendinous junction. There is underlying tendinosis. Subscapularis: Unremarkable. Teres Minor: Unremarkable. Biceps and [place]: Unremarkable. MUSCLES: Unremarkable. GLENOID LABRUM: There is degeneration seen in the posterior superior labrum. SOFT TISSUES: Unremarkable. LIGAMENTS: Unremarkable. OTHER: There is some fluid seen in the subacromial subdeltoid bursa. IMPRESSION: 1. Full-thickness tear of the supraspinatus tendon from the insertion site with 8 mm gap. 2. Full-thickness tear of the infraspinatus tendon near the musculotendinous junction. 3. 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 DATA REPOSITORY:
== END 2025-01-01 00:42 ==
LOC: DI 00:23
PROVIDERS: PCP Nurse Practitioner Family; Visit Provider Student in an Organized Health Care Education/Training Program
DX: M75.122 Complete rotator cuff tear or rupture of left shoulder, not specified as traumatic (principal); M67.921 Unspecified disorder of synovium and tendon, right upper arm
CPT/HCPCS: 73221

== ENCOUNTER 2025-03-07 15:45 | Outpatient (CLI) | payer MEDICAID, SELFPAY ==
--- NOTE | 2025-03-07 15:29 | DI.RAD_ITS ---
Exam(s) XR HAND RT COMPLETE EXAM: XR HAND RT COMPLETE CLINICAL HISTORY: pain, triggering. TECHNIQUE: 2D digital imaging was performed. COMPARISON: CR XR FINGER RT LITTLE from 01/21/2022 FINDINGS: 3 views Again noted is a volar fusion plate across a healed fracture site in the distal radius. There is no significant ulnar variance. No evidence of acute fracture in the hand. No osseous lesions nor erosions. However, on the present study there are symmetrical 1 millimeter calcific densities on both sides of the DIP joint of the 3r d-middle finger, not previously present 3 years ago. There are no distinct fracture lines at this [place]. Similar findings are not seen at the other DIP joints. Bone density is normal. No osseous lesions. No erosions. No radiopaque foreign bodies. IMPRESSION: The only radiographic change compared to images [id number] are 2 symmetrical appearing 1 millimeter calcif ic density seen off the outer most medial lateral aspects of the distal head of the middle phalanx of the 3rd-middle finger. DATA REPOSITORY: RADIATION DOSE DELIVERED:
== END 2025-03-07 15:46 | disposition home or self-care (01) ==
LOC: DIORS 15:46
PROVIDERS: PCP Nurse Practitioner Family; Visit Provider Physician Assistant
DX: M65.331 Trigger finger, right middle finger (principal); M19.041 Primary osteoarthritis, right hand
CPT/HCPCS: 73130

== ENCOUNTER 2025-04-10 01:31 | Outpatient (CLI) | payer MEDICAID, SELFPAY ==
--- NOTE | 2025-04-10 12:42 | DI.DEXA_ITS ---
Exam(s) XR DEXA BONE DENSITY W/WO RADHA EXAM: XR DEXA BONE DENSITY W/WO RADHA CLINICAL HISTORY: Post-menopausal symptoms, Z78.0, asymptomatic menopausal state TECHNIQUE: [employer] C densitometer analysis of left hip, lumbar spine and left forearm. Lateral survey image of the thoracic and lumbar spine. COMPARISON: CR XR DEXA BONE DENSITY W/WO RADHA from 06/11/2021 FINDINGS: Lateral view of the thoracic and lumbar spine shows no evidence of compression fractures. Bone mineral density measurements of the lumbar spine correspond to a total T- score of -1.0, at the lower limit of normal. This is not significantly changed from prior. Bone mineral density measurements of the left hip correspond to a total T-score of -0.7. This is not changed from the prior exam. The femoral neck T-score is -1.7, in the osteopenic range. Theleft forearm bone mineral density measurements correspond to a T-score of the distal 3rd of -1.5, in the osteopenic range. This represents a 10.4 percent decrease compared to 2020.. IMPRESSION: Osteopenia of the forearm and hip. Bone mineral density of the lumbar spine is at the lower limit of normal.
== END 2025-04-10 01:51 ==
LOC: DI 01:32
PROVIDERS: PCP Nurse Practitioner Family; Visit Provider Nurse Practitioner Family
DX: Z78.0 Asymptomatic menopausal state (principal); M81.0 Age-related osteoporosis without current pathological fracture
CPT/HCPCS: 77080

== ENCOUNTER 2025-07-04 03:27 | Outpatient (CLI) | payer MEDICAID, SELFPAY ==
--- NOTE | 2025-07-04 07:15 | DI.US_ITS ---
Exam(s) US RENAL EXAM: US RENAL CLINICAL HISTORY: monitor known kidney stones,n20.0 TECHNIQUE: Ultrasound of both kidneys performed using standard protocol. COMPARISON: US US RENAL from 04/18/2024 FINDINGS: RIGHT KIDNEY: Measures 11.3 cm in length. No cysts evident. Normal cortical thickness and corticomedullary differentiation .No solid masses No intrarenal calculi nor hydronephrosis. LEFT KIDNEY: Measures 11.3 cm in length. No cysts evident. Normal cortical thickness and corticomedullary differentiaion. No solids masses. No intrarenal calculi nor hydonephrosis. URINARY BLADDER: Prevoid volume is 287 cc Postvoid volume is 89 cc No evidence of bladder mass nor diverticuli. Ureterovesical jets: Both identified and appear symmetrical IMPRESSION: 1. No significant ultrasound findings in the kidneys. 2. Increased amount of postvoid residual urine in the bladder (89 cc). DATA REPOSITORY:
== END 2025-07-04 03:47 ==
LOC: DI 03:27
PROVIDERS: PCP Nurse Practitioner Family; Visit Provider Urology
DX: N20.0 Calculus of kidney (principal)
CPT/HCPCS: 76770

== ENCOUNTER 2025-09-17 11:07 | Outpatient (CLI) | payer MEDICAID, SELFPAY ==
[2025-09-17 16:36] LABS: Hemoglobin A1C 5.2 % (<5.7)
[2025-09-17 16:37] LABS: Vitamin D 25 Total 37 ng/mL (30-100)
[2025-09-17 16:38] LABS: TSH (W/Ref FT4) 0.83 uIU/mL (0.55-4.78)
[2025-09-17 16:40] LABS: ALT 14 U/L (10-49); AST 18 U/L (<34); Albumin 4.8 g/dL (3.2-5.0); Alkaline Phosphatase 72 U/L (46-116); Anion Gap 6.1 mmol/L (3-11); BUN 11 mg/dL (9-23); Bilirubin, Total 0.3 mg/dL (0.2-1.2); CO2 27.9 mmol/L (20.0-31.0); Calcium 9.8 mg/dL (8.3-10.6); Chloride 110 mmol/L (98-107); Cholesterol 218 mg/dL (<200); Glucose 91 mg/dL (74-106); HDL Cholesterol 51 mg/dL (>40); Potassium 4.3 mmol/L (3.5-5.1); Sodium 144 mmol/L (136-145); Total Protein 7.5 g/dL (5.7-8.2)
== END 2025-09-17 11:08 | disposition home or self-care (01) ==
PROVIDERS: PCP Nurse Practitioner Family; Visit Provider Nurse Practitioner Family
DX: Z13.1 Encounter for screening for diabetes mellitus (principal); Z13.220 Encounter for screening for lipoid disorders; E03.9 Hypothyroidism, unspecified; R20.0 Anesthesia of skin; R79.89 Other specified abnormal findings of blood chemistry
CPT/HCPCS: 36415; 80053; 80061; 82306; 83036; 84443